=== PATIENT | male | born 1980 | race Caucasian/White ===

== ENCOUNTER 2016-11-09 21:50 | Emergency (ER) | payer MEDICAID, OTHER ==
[~2016-11-09] VITALS: Ht 170.2 cm; Wt 70.8 kg
[~2016-11-09 21:50] MED LIST: BENZ100C18 PO; DOXY100C2 PO
[2016-11-09] MEDS ORDERED: CLINDAMYCIN 900 MG/6ML (CLEOCIN) VIAL IV ONE (22:00)
[2016-11-09 22:11] LABS: MEAN PLATELET VOLUME 10.2 FL (7.4-10.4); RED BLOOD COUNT 4.42 10^6/uL (4.35-5.85); RED CELL DISTRIBUTION WIDTH 12.7 % (10.0-14.5); WHITE BLOOD COUNT 12.2 10^3/uL (4.3-11.0)
[2016-11-09] MEDS ORDERED: NS (IVPB) 50 ML ONE (22:21)
[2016-11-09 22:28] LABS: ALANINE AMINOTRANSFERASE 15 U/L (0-55); ALBUMIN 3.7 GM/DL (3.2-4.5); ALCOHOL < 10 MG/DL (<10); ANION GAP 7 MMOL/L (5-14); ASPARTATE AMINO TRANSFERASE 15 U/L (5-34); BILIRUBIN,DIRECT 0.1 MG/DL (0.0-0.3); BILIRUBIN,INDIRECT 0.3 MG/DL; BILIRUBIN,TOTAL 0.4 MG/DL (0.1-1.0); BLOOD UREA NITROGEN 21 MG/DL (7-18); BUN/CREATININE RATIO 21; CALCIUM 8.6 MG/DL (8.5-10.1); CARBON DIOXIDE 25 MMOL/L (21-32); CHLORIDE 108 MMOL/L (98-107); CREATININE SERUM 1.02 MG/DL (0.60-1.30); GFR ESTIMATED > 60; GLUCOSE 159 MG/DL (70-105); SODIUM 140 MMOL/L (135-145); TOTAL PROTEIN 5.8 GM/DL (6.4-8.2)
[2016-11-09] MEDS ORDERED: ONDANSETRON 4 MG/2 ML (SDV) Z0FRAN IVP ONE (23:00)
[2016-11-09] MEDS ORDERED: fentaNYL INJECTION 100 MCG/2 ML AMP IVP ONE (23:30)
[2016-11-10] MEDS ORDERED: fentaNYL INJECTION 100 MCG/2 ML AMP IVP ONE
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
[2016-11-10] MEDS ORDERED: morphine INJ 10 MG/ML 1ML (SYR OR VIAL) ONE (00:38)
[2016-11-10] MEDS ORDERED: morphine INJ 10 MG/ML 1ML (SYR OR VIAL) IVP ONE (00:45)
[2016-11-10 01:10] VITALS: BP 145/91
--- NOTE | 2016-11-10 06:41 | Diagnostic Imaging Report ---
PROCEDURE: CT head, face, and cervical spine without contrast. TECHNIQUE: Multiple contiguous axial images were obtained through the head, neck, and facial bones without the use of intravenous contrast. Sagittal and coronal reformations through the cervical spine and facial bones were also performed. INDICATION: Trauma. FINDINGS: CT head: There is a subtle area of increased density along the frontal gyri on the right. This is quite small and punctate in appearance. This could represent focal calcification though a small focal contusion cannot be excluded. No other changes of intracranial hemorrhage are noted. Ventricles and cortical gyral pattern are normal. Basal cisterns are clear. Mastoid air cells are well-aerated. IMPRESSION: Small focal punctate area of increased density right frontal gyri. Differential includes small early calcification versus a small focal contusion. CT facial bones: There is a fracture right of midline within the mandible. This is nondisplaced. There is also a fracture of the angle of the mandible on the left which is slightly displaced by approximately 6 mm. The temporomandibular joints are in good alignment. The paranasal sinuses are well-aerated with minimal mucosal thickening. There is deviation of the nasal septum to the left. Nasal bone shows some irregularity though this is likely chronic. There is noted dental caries. IMPRESSION: Fractures of the mandible and just right of midline and at the angle of the mandible on the left which is slightly displaced. Cervical spine: Sagittal and coronal images show good alignment of the vertebral bodies. Body heights and disc spaces are well-maintained. Atlantoaxial joint is normal. Facets are in good alignment. Soft tissues are normal. No fracture. IMPRESSION: Normal cervical spine. These findings are in concordance with the preliminary report. Dictated by: Dictated on workstation # [id number]
== END 2016-11-10 01:10 | disposition short-term general hospital (02) ==
LOC: EDUNIT# 21:50 → ER 21:51
DX: S02.609A Fracture of mandible, unspecified, initial encounter for closed fracture (principal); J44.9 Chronic obstructive pulmonary disease, unspecified; I10 Essential (primary) hypertension; R11.2 Nausea with vomiting, unspecified; F19.10 Other psychoactive substance abuse, uncomplicated; F12.90 Cannabis use, unspecified, uncomplicated; F17.210 Nicotine dependence, cigarettes, uncomplicated; Y04.2XXA Assault by strike against or bumped into by another person, initial encounter
CPT/HCPCS: 36415; 70450; 70486; 72125; 80048; 80076; 80306; 80320; 85027; 96365; 96375; 96376

== ENCOUNTER 2017-02-08 01:16 | Emergency (ER) | payer SELFPAY ==
[~2017-02-08] VITALS: Ht 170.2 cm; Wt 70.8 kg
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
[2017-02-08] MEDS ORDERED: TRAM-42 PO (01:55)
[2017-02-08 02:00] VITALS: BP 133/94
[2017-02-08] MEDS ORDERED: HYDROcodone/APAP 5 MG/325 MG (LORTAB) TAB PO ONE (02:00)
--- NOTE | 2017-02-08 06:59 | Diagnostic Imaging Report ---
INDICATION: Injury FINDINGS: Comminuted fractures of the distal neck of the fourth metacarpal without substantial angulation. There appears to be an old healed deformity of the distal neck and distal shaft of the fifth metacarpal. The phalanges nonacute. No foreign body. IMPRESSION: Acute appearing fracture distal neck fourth metacarpal. Old healed deformities to the fifth. Dictated by: Dictated on workstation # [id number]
== END 2017-02-08 02:00 | disposition home or self-care (01) ==
LOC: EDUNIT# 01:16 → ER 01:19
DX: S62.334A Displaced fracture of neck of fourth metacarpal bone, right hand, initial encounter for closed fracture (principal); F17.210 Nicotine dependence, cigarettes, uncomplicated; J44.9 Chronic obstructive pulmonary disease, unspecified; I10 Essential (primary) hypertension; Y04.8XXA Assault by other bodily force, initial encounter
CPT/HCPCS: 73130; 99283

== ENCOUNTER 2018-04-04 21:16 | Emergency (ER) | payer SELFPAY ==
[~2018-04-04] VITALS: Ht 170.2 cm; Wt 77.1 kg
[~2018-04-04 21:16] MED LIST changes: +TRAM-42 PO
[2018-04-04] MEDS ORDERED: PROP40TA5 PO (21:26)
--- NOTE | 2018-04-04 21:28 | ED Abdominal Pain ---
General Chief Complaint: Abdominal/GI Problems Stated Complaint: LOWER ABD PAIN Source of Information: Patient Exam Limitations: No Limitations History of Present Illness Date Seen by Provider: Apr 04, 2018 Time Seen by Provider: 21:27 Initial Comments To ER with right lower abdominal pain since about 1 AM this morning. No nausea or vomiting. No fevers or chills. He states "it felt like a gas pain at first, then I farted a few times and next thing I know I was shittin' blood." States that he's had 3 bloody stools today. No history of this. No history of inflammatory bowel disease. No fevers or chills. Timing/Duration: 12-24 Hours Severity/Quality: Moderate Location: RLQ Radiation: No Radiation Activities at Onset: None Allergies and Home Medications Allergies Coded Allergies: No Known Drug Allergies (Unverified , 01/28/13) Home Medications Amoxicillin/Potassium Clav 1 Each Tablet, 1 EACH PO BID Prescribed by: HILARY BLUNT on 04/04/180 Propranolol HCl 40 Mg Tablet, 40 MG PO BID, (Reported) Patient Home Medication List Home Medication List Reviewed: Yes Review of Systems Review of Systems Constitutional: see HPI; No chills, No fever EENTM: No Symptoms Reported Respiratory: No Symptoms Reported Cardiovascular: No Symptoms Reported Gastrointestinal: See HPI, Abdominal Pain, Diarrhea; Denies Nausea; Rectal Bleeding Genitourinary: No Symptoms Reported Musculoskeletal: no symptoms reported Skin: no symptoms reported Psychiatric/Neurological: No Symptoms Reported Endocrine: No Symptoms Reported Past Crobdqk-Dkthan-Fbqicz Hx Patient Social History Drug of Choice: marijuana Type Used: Cigarettes 2nd Hand Smoke Exposure: Yes Recent Foreign Travel: No Contact w/Someone Who Travel: No Recent Hopitalizations: No Seasonal Allergies Seasonal Allergies: No Past Medical History Surgeries: No Respiratory: Yes Asthma, Chronic Bronchitis, COPD Cardiac: Yes Hypertension Neurological: No Genitourinary: No Gastrointestinal: No Musculoskeletal: No Endocrine: No HEENT: No Cancer: No Psychosocial: No Integumentary: No Blood Disorders: No Family Medical History No Pertinent Family Hx Physical Exam Vital Signs Vital Signs - First Documented 04/04/18 21:20 Temp 96.4 Pulse 77 Resp 16 B/P (MAP) 129/82 (98) Pulse Ox 98 O2 Delivery Room Air Capillary Refill : Height/Weight/BMI Height: 5'7.00" Weight: 156lbs. oz. 70.166808in; 24.27 BMI Method:Stated General Appearance: WD/WN, no apparent distress HEENT: PERRL/EOMI, normal ENT inspection Respiratory: no respiratory distress, no accessory muscle use Cardiovascular: regular rate, rhythm, no murmur Gastrointestinal: normal bowel sounds, soft, rebound, tenderness (right lower quadrant) Genital/Rectal: other (There is no obvious hemorrhoid or current or dried blood at the rectum) Extremities: normal range of motion, non-tender Neurologic/Psychiatric: alert, normal mood/affect, oriented x 3 Skin: normal color, warm/dry Progress/Results/Core Measures Results/Orders Lab Results Laboratory Tests Test 04/04/18 21:30 04/04/18 21:36 Range/Units White Blood Count 10.5 4.3-11.0 10^3/uL Red Blood Count 4.30 L 4.35-5.85 10^6/uL Hemoglobin 13.5 13.3-17.7 G/DL Hematocrit 39 L 40-54 % Mean Corpuscular Volume 90 80-99 FL Mean Corpuscular Hemoglobin 31 25-34 PG Mean Corpuscular Hemoglobin Concent 35 32-36 G/DL Red Cell Distribution Width 12.9 10.0-14.5 % Platelet Count 314 130-400 10^3/uL Mean Platelet Volume 9.5 7.4-10.4 FL Neutrophils (%) (Auto) 38 L 42-75 % Lymphocytes (%) (Auto) 47 H 12-44 % Monocytes (%) (Auto) 13 H 0-12 % Eosinophils (%) (Auto) 2 0-10 % Basophils (%) (Auto) 0 0-10 % Neutrophils # (Auto) 4.0 1.8-7.8 X 10^3 Lymphocytes # (Auto) 5.0 H 1.0-4.0 X 10^3 Monocytes # (Auto) 1.3 H 0.0-1.0 X 10^3 Eosinophils # (Auto) 0.2 0.0-0.3 10^3/uL Basophils # (Auto) 0.0 0.0-0.1 10^3/uL Sodium Level 143 135-145 MMOL/L Potassium Level 4.0 3.6-5.0 MMOL/L Chloride Level 107 98-107 MMOL/L Carbon Dioxide Level 24 21-32 MMOL/L Anion Gap 12 5-14 MMOL/L Blood Urea Nitrogen 12 7-18 MG/DL Creatinine 1.08 0.60-1.30 MG/DL Estimat Glomerular Filtration Rate > 60 BUN/Creatinine Ratio 11 Glucose Level 98 70-105 MG/DL Calcium Level 9.4 8.5-10.1 MG/DL Corrected Calcium 9.2 8.5-10.1 MG/DL Total Bilirubin 0.3 0.1-1.0 MG/DL Aspartate Amino Transf (AST/SGOT) 22 5-34 U/L Alanine Aminotransferase (ALT/SGPT) 21 0-55 U/L Alkaline Phosphatase 55 40-136 U/L Total Protein 6.6 6.4-8.2 GM/DL Albumin 4.2 3.2-4.5 GM/DL Urine Color YELLOW Urine Clarity CLEAR Urine pH 6 5-9 Urine Specific Ector 1.025 H 1.016-1.022 Urine Protein NEGATIVE NEGATIVE Urine Glucose (UA) NEGATIVE NEGATIVE Urine Ketones NEGATIVE NEGATIVE Urine Nitrite NEGATIVE NEGATIVE Urine Bilirubin NEGATIVE NEGATIVE Urine Urobilinogen NORMAL NORMAL MG/DL Urine Leukocyte Esterase NEGATIVE NEGATIVE Urine RBC (Auto) 1+ H NEGATIVE Urine RBC 0-2 /HPF Urine WBC RARE /HPF Urine Crystals NONE /LPF Urine Bacteria NEGATIVE /HPF Urine Casts NONE /LPF Urine Mucus SMALL H /LPF Urine Culture Indicated NO My Orders Orders - HILARY BLUNT APRN Cbc With Automated Diff (04/04/18 21:25) Comprehensive Metabolic Panel (04/04/18 21:25) Ua Culture If Indicated (04/04/18 21:25) Iv Heplock-Insert (Order) (04/04/18 21:25) Ketorolac Injection (Toradol Injection) (04/04/18 21:30) Ns Iv 1000 Ml (Sodium Chloride 0.9%) (04/04/18 21:30) Ct Abd/Pelv W (Appendicitis) (04/04/18 21:25) Iohexol Injection (Omnipaque 350 Mg/Ml 1 (04/04/18 21:45) Contrast Received (Contrast Received) (04/04/18 21:45) Ns (Ivpb) (Sodium Chloride 0.9%) (04/04/18 21:45) Medications Given in ED Current Medications Medications Dose Ordered Sig/Shelli Route Start Time Stop Time Status Last Admin Dose Admin Iohexol 100 ml ONCE ONCE IV 04/04/18 21:45 04/04/18 21:46 DC 04/04/18 21:46 100 ML Ketorolac Tromethamine 15 mg ONCE ONCE IVP 04/04/18 21:30 04/04/18 21:31 DC 04/04/18 21:33 15 MG Sodium Chloride 250 ml ONCE ONCE IV 04/04/18 21:45 04/04/18 21:46 DC 04/04/18 21:47 80 ML Vital Signs/I&O 04/04/18 21:20 Temp 96.4 Pulse 77 Resp 16 B/P (MAP) 129/82 (98) Pulse Ox 98 O2 Delivery Room Air Diagnostic Imaging Diagonstic Imaging: CT Comments NAME: WILLA VILLEDA [facility] REC#: [id number] PT STATUS: REG ER : 1980 PHYSICIAN: HILARY BLUNT APRN ADMIT DATE: 04/04/18/ER Draft Date of Exam:04/04/18 CT ABD/PELV W (APPENDICITIS) Clinical indication: Patient with lower abdominal pain with nausea, vomiting and diarrhea. Patient has history of left testicle removed due to testicular cancer. Exam: CT scan of the abdomen and pelvis performed with 100 cc of Omnipaque 350 IV contrast. Coronal and sagittal reformatted images were created. Comparison: None. Findings: There is minimal dependent atelectasis involving the posterior aspects of both lung bases. Surgically absent left testicle is seen. Visualized portion of the bones shows no significant abnormality. There is diffuse low-attenuation seen throughout the liver which may be related to diffuse fatty infiltration. The liver is otherwise unremarkable. The spleen, pancreas, gallbladder, and adrenal glands are unremarkable. Both kidneys are unremarkable with no hydronephrosis or mass. There is no significant para-aortic or inguinal lymphadenopathy. There is no intra-abdominal free air or free fluid. The small bowel, colon, and stomach are unremarkable. The appendix is air-filled and unremarkable. There is no significant lymphadenopathy. There are nonspecific subcentimeter mesenteric lymph nodes noted. The bladder is partially fluid-filled with no gross and abnormality. Extra-abdominal and extra-pelvic soft tissue structures are unremarkable. Impression: 1. There are multiple subcentimeter mesenteric lymph nodes which are nonspecific. Mesenteric adenitis may be considered. 2: Otherwise, there is no evidence of acute abdominal or pelvic process. The appendix is normal. 3: Surgically absent left testicle. There is no evidence of lymphadenopathy or developing mass. Dictated on workstation # [id number] Dict: 04/04/182210 Trans: 04/04/182223 [facility] [id number] Interpreted by: VALENTINA CHU MD Electronically signed by: Departure Communication (Admissions) 2030-I spoke with Dr. Morales. Does not recommend antibiotics. I'll have the patient follow up with Dr. Morales in the outpatient setting and return to ER for any worsening symptoms. Impression Primary Impression: Mesenteric adenitis Additional Impression: History of rectal bleeding Disposition: HOME, SELF-CARE Condition: Stable Departure-Patient Inst. Decision time for Depature: 22:27 Referrals: [facility] [place] Primary Care Physician FIDE CASTRO (Family) Primary Care Physician Patient Instructions: Bloody Stools, Adult (DC), Mesenteric Lymphadenitis Add. Discharge Instructions: 1. Clear liquids only for the next 24 hours. Do not eat or drink anything red. Pain medication as directed. Return to ER for any lightheadedness, shortness of breath, severe abdominal pain or other concerns. Call a surgeon of your choosing tomorrow to make an appointment to be seen. Antibiotics as directed. All discharge instructions reviewed with patient and/or family. Voiced understanding. Work/School Note: Work Release Form Date Seen in the Emergency Department: Apr 04, 2018 Return to Work: Apr 06, 2018 HILARY BLUNT APRN Apr 04, 2018 21:28
[2018-04-04] MEDS ORDERED: NS IV 1000 ML 1,000 ML IV SCH (21:30)
[2018-04-04] MEDS ORDERED: KETOROLAC 30 MG/ML VIAL IVP ONE (21:30)
[2018-04-04 21:42] LABS: BASOPHILS % (AUTO) 0 % (0-10); EOSINOPHILS # (AUTO) 0.2 10^3/uL (0.0-0.3); EOSINOPHILS % (AUTO) 2 % (0-10); HEMATOCRIT 39 % (40-54); HEMOGLOBIN 13.5 G/DL (13.3-17.7); LYMPHOCYTES % (AUTO) 47 % (12-44); MEAN CORPUSCULAR HEMOGLOBIN 31 PG (25-34); MEAN CORPUSCULAR HGB CONC 35 G/DL (32-36); MEAN CORPUSCULAR VOLUME 90 FL (80-99); MEAN PLATELET VOLUME 9.5 FL (7.4-10.4); MONOCYTES # (AUTO) 1.3 X 10^3 (0.0-1.0); MONOCYTES % (AUTO) 13 % (0-12); NEUTROPHILS % (AUTO) 38 % (42-75); PLATELET COUNT 314 10^3/uL (130-400); RED CELL DISTRIBUTION WIDTH 12.9 % (10.0-14.5); WHITE BLOOD COUNT 10.5 10^3/uL (4.3-11.0)
[2018-04-04 21:43] LABS: BILIRUBIN,URINE NEGATIVE (NEGATIVE); CLARITY,URINE CLEAR; COLOR,URINE YELLOW; GLUCOSE, URINE (UA) NEGATIVE (NEGATIVE); KETONES,URINE NEGATIVE (NEGATIVE); LEUKOCYTE ESTERASE ,URINE NEGATIVE (NEGATIVE); NITRITE,URINE NEGATIVE (NEGATIVE); PH,URINE 6 (5-9); PROTEIN,URINE NEGATIVE (NEGATIVE); UROBILINOGEN,URINE NORMAL (NORMAL)
[2018-04-04] MEDS ORDERED: IOHEXOL 350 MG/ML 100 ML (OMNIPAQUE 350) VIAL IV ONE (21:45)
[2018-04-04] MEDS ORDERED: RECEIVED CONTRAST (Hold Metformin) IV SCH (21:45)
[2018-04-04] MEDS ORDERED: NS 250 ML (IVPB) BAG IV ONE (21:45)
[2018-04-04 21:54] LABS: BACTERIA,URINE NEGATIVE /HPF; RBC,URINE 0-2 /HPF; WBC,URINE RARE /HPF
[2018-04-04 22:01] LABS: ALANINE AMINOTRANSFERASE 21 U/L (0-55); ALBUMIN 4.2 GM/DL (3.2-4.5); ALKALINE PHOSPHATASE 55 U/L (40-136); BILIRUBIN,TOTAL 0.3 MG/DL (0.1-1.0); BUN/CREATININE RATIO 11; CALCIUM 9.4 MG/DL (8.5-10.1); CARBON DIOXIDE 24 MMOL/L (21-32); CHLORIDE 107 MMOL/L (98-107); CREATININE SERUM 1.08 MG/DL (0.60-1.30); GFR ESTIMATED > 60; GLUCOSE 98 MG/DL (70-105); SODIUM 143 MMOL/L (135-145); TOTAL PROTEIN 6.6 GM/DL (6.4-8.2)
--- NOTE | 2018-04-04 22:24 | Diagnostic Imaging Report ---
Clinical indication: Patient with lower abdominal pain with nausea, vomiting and diarrhea. Patient has history of left testicle removed due to testicular cancer. Exam: CT scan of the abdomen and pelvis performed with 100 cc of Omnipaque 350 IV contrast. Coronal and sagittal reformatted images were created. Comparison: None. Findings: There is minimal dependent atelectasis involving the posterior aspects of both lung bases. Surgically absent left testicle is seen. Visualized portion of the bones shows no significant abnormality. There is diffuse low-attenuation seen throughout the liver which may be related to diffuse fatty infiltration. The liver is otherwise unremarkable. The spleen, pancreas, gallbladder, and adrenal glands are unremarkable. Both kidneys are unremarkable with no hydronephrosis or mass. There is no significant para-aortic or inguinal lymphadenopathy. There is no intra-abdominal free air or free fluid. The small bowel, colon, and stomach are unremarkable. The appendix is air-filled and unremarkable. There is no significant lymphadenopathy. There are nonspecific subcentimeter mesenteric lymph nodes noted. The bladder is partially fluid-filled with no gross and abnormality. Extra-abdominal and extra-pelvic soft tissue structures are unremarkable. Impression: 1. There are multiple subcentimeter mesenteric lymph nodes which are nonspecific. Mesenteric adenitis may be considered. 2: Otherwise, there is no evidence of acute abdominal or pelvic process. The appendix is normal. 3: Surgically absent left testicle. There is no evidence of lymphadenopathy or developing mass. Dictated by: Dictated on workstation # [id number]
[2018-04-04] MEDS ORDERED: AMOX-358 PO (22:30)
[2018-04-04 22:41] VITALS: BP 109/56
[2018-04-04] MEDS ORDERED: RX-HYDROCODONE/APAP 5/325 MG #4 TAB PK PO PRN (22:45)
== END 2018-04-04 22:41 | disposition home or self-care (01) ==
LOC: EDUNIT# 21:16 → ER 21:17
DX: I88.0 Nonspecific mesenteric lymphadenitis (principal); J44.9 Chronic obstructive pulmonary disease, unspecified; I10 Essential (primary) hypertension; F12.10 Cannabis abuse, uncomplicated; Z87.19 Personal history of other diseases of the digestive system; Z77.22 Contact with and (suspected) exposure to environmental tobacco smoke (acute) (chronic)
CPT/HCPCS: 36415; 74177; 80053; 81000; 85025

== ENCOUNTER 2018-04-06 19:21 | Emergency (ER) | payer SELFPAY ==
[~2018-04-06] VITALS: Ht 170.2 cm; Wt 74.4 kg
[~2018-04-06 19:21] MED LIST changes: +AMOX-358 PO; +PROP40TA5 PO
--- NOTE | 2018-04-06 19:34 | ED GI ---
General Stated Complaint: DIARRHEA Source of Information: Patient Exam Limitations: No Limitations History of Present Illness Date Seen by Provider: Apr 06, 2018 Time Seen by Provider: 19:32 Initial Comments To ER per private vehicle from home with reports of "watery diarrhea every 10 minutes". He was seen here 2 days ago and diagnosed with mesenteric adenitis. He was seen by [facility] today in follow-up for this started on clindamycin and prednisone. The states that he is "scheduled for surgery in [address] Morales". She is uncertain why or what procedure will be done. Timing/Duration: 1-2 Days Severity/Quality: Moderate Location: Generalized Abdomen Radiation: No Radiation Activities at Onset: None Associated Symptoms: No Fever/Chills, No Nausea/Vomiting Allergies and Home Medications Allergies Coded Allergies: No Known Drug Allergies (Unverified , 01/28/13) Home Medications Propranolol HCl 40 Mg Tablet, 40 MG PO BID, (Reported) Patient Home Medication List Home Medication List Reviewed: Yes Review of Systems Review of Systems Constitutional: see HPI EENTM: No Symptoms Reported Respiratory: No Symptoms Reported Gastrointestinal: See HPI, Abdominal Pain; Denies Constipated; Diarrhea; Denies Nausea Genitourinary: No Symptoms Reported Musculoskeletal: no symptoms reported Skin: no symptoms reported Psychiatric/Neurological: No Symptoms Reported Endocrine: No Symptoms Reported Past Iyfhbmb-Byaqgd-Lnzulx Hx Patient Social History Drug of Choice: cannibus Type Used: Cigarettes 2nd Hand Smoke Exposure: Yes Recent Foreign Travel: No Contact w/Someone Who Travel: No Recent Hopitalizations: No Immunizations Up To Date Tetanus Booster (TDap): Unknown Seasonal Allergies Seasonal Allergies: No Past Medical History Surgeries: Yes (testicular removal) Orthopedic Respiratory: Yes Asthma, Chronic Bronchitis, COPD Cardiac: Yes Hypertension Neurological: No Genitourinary: No Gastrointestinal: No Musculoskeletal: No Endocrine: No HEENT: No Cancer: No Psychosocial: No Integumentary: No Blood Disorders: No Family Medical History No Pertinent Family Hx Physical Exam Vital Signs Vital Signs - First Documented 04/06/18 19:30 Temp 98.7 Pulse 71 Resp 18 B/P (MAP) 127/82 (97) Pulse Ox 97 O2 Delivery Room Air Capillary Refill : Height/Weight/BMI Height: 5'7.00" Weight: 170lbs. oz. 77.059085uf; 24.27 BMI Method:Stated General Appearance: WD/WN, no apparent distress HEENT: PERRL/EOMI, normal ENT inspection Respiratory: no respiratory distress, no accessory muscle use Cardiovascular: regular rate, rhythm, no murmur Gastrointestinal: normal bowel sounds, non tender, soft Extremities: normal range of motion, non-tender Neurologic/Psychiatric: alert, normal mood/affect, oriented x 3 Skin: normal color, warm/dry Progress/Results/Core Measures Results/Orders Lab Results Laboratory Tests Test 04/06/18 19:35 Range/Units White Blood Count 17.7 H 4.3-11.0 10^3/uL Red Blood Count 4.74 4.35-5.85 10^6/uL Hemoglobin 15.0 13.3-17.7 G/DL Hematocrit 43 40-54 % Mean Corpuscular Volume 91 80-99 FL Mean Corpuscular Hemoglobin 32 25-34 PG Mean Corpuscular Hemoglobin Concent 35 32-36 G/DL Red Cell Distribution Width 13.2 10.0-14.5 % Platelet Count 302 130-400 10^3/uL Mean Platelet Volume 9.8 7.4-10.4 FL Neutrophils (%) (Auto) 89 H 42-75 % Lymphocytes (%) (Auto) 7 L 12-44 % Monocytes (%) (Auto) 3 0-12 % Eosinophils (%) (Auto) 1 0-10 % Basophils (%) (Auto) 0 0-10 % Neutrophils # (Auto) 15.7 H 1.8-7.8 X 10^3 Lymphocytes # (Auto) 1.2 1.0-4.0 X 10^3 Monocytes # (Auto) 0.6 0.0-1.0 X 10^3 Eosinophils # (Auto) 0.2 0.0-0.3 10^3/uL Basophils # (Auto) 0.0 0.0-0.1 10^3/uL Neutrophils % (Manual) 77 % Lymphocytes % (Manual) 22 % Monocytes % (Manual) 1 % Eosinophils % (Manual) 0 % Basophils % (Manual) 0 % Band Neutrophils 0 % Blood Morphology Comment NORMAL Sodium Level 141 135-145 MMOL/L Potassium Level 4.2 3.6-5.0 MMOL/L Chloride Level 107 98-107 MMOL/L Carbon Dioxide Level 23 21-32 MMOL/L Anion Gap 11 5-14 MMOL/L Blood Urea Nitrogen 9 7-18 MG/DL Creatinine 1.04 0.60-1.30 MG/DL Estimat Glomerular Filtration Rate > 60 BUN/Creatinine Ratio 9 Glucose Level 128 H 70-105 MG/DL Calcium Level 9.3 8.5-10.1 MG/DL Corrected Calcium 8.5-10.1 MG/DL Total Bilirubin 0.4 0.1-1.0 MG/DL Aspartate Amino Transf (AST/SGOT) 26 5-34 U/L Alanine Aminotransferase (ALT/SGPT) 28 0-55 U/L Alkaline Phosphatase 57 40-136 U/L Total Protein 7.3 6.4-8.2 GM/DL Albumin 4.6 H 3.2-4.5 GM/DL My Orders Orders - HILARY BLUNT APRN Cbc With Automated Diff (04/06/18 19:24) Comprehensive Metabolic Panel (04/06/18 19:24) Iv Heplock-Insert (Order) (04/06/18 19:24) Ns Iv 1000 Ml (Sodium Chloride 0.9%) (04/06/18 19:30) Hyoscyamine Sl Tablet (Levsin Sl Tablet) (04/06/18 19:30) Manual Differential (04/06/18 19:35) Stool Culture (04/06/18 20:20) C Difficile Ag + Toxin A/B. (04/06/18 20:20) Rx-Hyoscyamine Tab (Rx-Levsin Sl) (04/06/18 20:20) Ketorolac Injection (Toradol Injection) (04/06/18 20:30) Medications Given in ED Current Medications Medications Dose Ordered Sig/Shelli Route Start Time Stop Time Status Last Admin Dose Admin Hyoscyamine Sulfate 0.25 mg ONCE ONCE PO 04/06/18 19:30 04/06/18 19:31 DC 04/06/18 19:44 0.25 MG Vital Signs/I&O 04/06/18 19:30 Temp 98.7 Pulse 71 Resp 18 B/P (MAP) 127/82 (97) Pulse Ox 97 O2 Delivery Room Air Departure Communication (Admissions) I spoke with Dr. Morales. He does not have any clinic notes on this patient and does not have anything surgically scheduled other than possibly an office visit. He would recommend discontinuing the clindamycin and prednisone if they are in fact treatment for mesenteric adenitis. He would recommend NSAIDs and follow up with him. 2020- he did start the prednisone earlier today which would account for the leukocytosis. I'll have him stop that as well as the clindamycin. Prescribed Levsin as this still likely represents a viral gastroenteritis. I did order a C. difficile stool sample and stool culture. He did get a stool sample in the emergency room and there is no obvious blood in it. Impression Primary Impression: Gastroenteritis Additional Impression: Mesenteric adenitis Disposition: HOME, SELF-CARE Condition: Stable Departure-Patient Inst. Decision time for Depature: 20:22 Referrals: [facility] (PCP) Primary Care Physician FIDE CASTRO (Family) Primary Care Physician SHELIA MORALES DO Patient Instructions: [id number], Mesenteric Lymphadenitis Add. Discharge Instructions: 1. Drink plenty of fluids to stay hydrated 2. Medication as directed 3. You may stop the clindamycin and prednisone. Return to ER for any high fevers or other concerns. You may also call Dr. Morales yourself tomorrow morning to make the appointment. Copy Copies To 1: SHELIA MORALES DO HILARY BLUNT APRN Apr 06, 2018 19:33
--- OUTSIDE RECORDS SUMMARY | 2018-04-06 19:34 | XMS REPORT ---
Author Author FIDE CASTRO Organization [facility] Address [address] [place] [address] Care Team Providers Care Beater Boss Name Role Phone FIDE CASTRO Unavailable PROBLEMS Type Condition ICD9-CM Code [id number] Code Onset Dates Condition Status SNOMED Code Problem Paresthesia of both hands R20.2 Active 003311010 Problem Hypogonadism in male E29.1 Active 59588212 ALLERGIES No Information ENCOUNTERS Encounter Location Date Diagnosis [place] [id number] [place] [phone] Dec, [place] [id number] [place] [address] 288[address]463 Oct, Closed displaced fracture of base of third metacarpal bone of right hand with routine healing, subsequent encounter S62.312D [place] [id number] [place] [address] Jun, Paresthesia of both hands R20.2 [place] [id number] [place] [address]73[address] 8637 Jan, Closed displaced fracture of base of third metacarpal bone of right hand with routine healing, subsequent encounter S62.312D [place] [id number] [place] [address] 02127[address] 3295 Jan, [place] [id number] [place] [address]- 3662 Oct, [place] [id number] [place] [address] 82319- 7296 Feb, Visit for suture removal Z48.02 and Sebaceous cyst L72.3 [place] [id number] [place] [address] 14274- 1508 Feb, Sebaceous cyst L72.3 ; Pain in left knee M25.562 and Hypogonadism in male E29.1 [facility] [address], [place] [address] Jan, Sebaceous cyst L72.3 [facility] [address], [place] [address] Jul, [facility] [id number] [place] [phone] Jul, [facility] [address], [place] [address] Apr, [place] [address], [place] [address] Apr, IMMUNIZATIONS No Known Immunizations SOCIAL HISTORY Never Assessed REASON FOR VISIT Refill request PLAN OF CARE VITAL SIGNS MEDICATIONS Medication Instructions Dosage Frequency Start Date End Date Duration Status Propranolol HCl 40 mg Orally Twice a day, voucher 1st fill 1 tablet 30 Active RESULTS No Results PROCEDURES No Known procedures INSTRUCTIONS MEDICATIONS ADMINISTERED No Known Medications MEDICAL (GENERAL) HISTORY Type Description Date Medical History hypertension Surgical History left knee scope Surgical History right hand broken 2016 Surgical History testicle had a cyst 2016 Surgical History plates in the jaw 10/2016
--- OUTSIDE RECORDS SUMMARY | 2018-04-06 19:34 | XMS REPORT ---
Author Author FIDE CASTRO Organization [facility] Address [address] [place] [address] Care Team Providers Care Jig Box Operator Name Role Phone FIDE CASTRO Unavailable PROBLEMS Type Condition ICD9-CM Code [id number] Code Onset Dates Condition Status SNOMED Code Problem Paresthesia of both hands R20.2 Active 611016421 Problem Hypogonadism in male E29.1 Active [id number] ALLERGIES No Known Allergies ENCOUNTERS Encounter Location Date Diagnosis [place] [id number] [place] [address] Jun, Paresthesia of both hands R20.2 [facility] [id number] [place] [address] 88178- [address] Jan, Closed displaced fracture of base of third metacarpal bone of right hand with routine healing, subsequent encounter S62.312D [facility] [id number] [place] [address]- 6157 Jan, [place] [id number] [place] [address] 00746- 0064 Oct, [facility] [id number] [place] [address] 16842- 4[address] Feb, Visit for suture removal Z48.02 and Sebaceous cyst L72.3 [facility] [id number] [place] [address] 86700- 3054 Feb, Sebaceous cyst L72.3 ; Pain in left knee M25.562 and Hypogonadism in male E29.1 [facility] [id number] [place] [address] 47345- [address]479 Jan, Sebaceous cyst L72.3 [facility] [id number] [place] [address]100- [address] Jul, [facility] [address] [facility] [id number] [place] [address] Jul, [facility] [address] [facility] [id number] [address] Apr, [facility] [address] [facility] [id number] [place] [address] Apr, IMMUNIZATIONS No Known Immunizations SOCIAL HISTORY Never Assessed REASON FOR VISIT General physical, PT broke his right hand a few months ago and is now always swollen and PT needs his BP checked-Srinivasan TAYLOR PLAN OF CARE VITAL SIGNS Height 67 in 2017-06-24 Weight 142.8 lbs 2017-06-24 Temperature 97.9 degrees Fahrenheit 2017-06-24 Heart Rate 84 bpm 2017-06-24 Respiratory Rate 18 2017-06-24 BMI 22.36 kg/m2 2017-06-24 Blood pressure systolic 128 mmHg 2017-06-24 Blood pressure diastolic 70 mmHg 2017-06-24 MEDICATIONS Medication Instructions Dosage Frequency Start Date End Date Duration Status Propranolol HCl 40 mg Orally Twice a day, voucher 1st fill 1 tablet 30 Active Neurontin 300 MG Orally Once a day 1 capsule before bedtime 24h Jun, 30 day(s) Active RESULTS No Results PROCEDURES No Known procedures INSTRUCTIONS MEDICATIONS ADMINISTERED No Known Medications MEDICAL (GENERAL) HISTORY Type Description Date Medical History hypertension Surgical History left knee scope Surgical History right hand broken 2016 Surgical History testicle had a cyst 2016 Surgical History plates in the jaw 10/2016
--- OUTSIDE RECORDS SUMMARY | 2018-04-06 19:34 | XMS REPORT ---
Author FIDE Lopez Organization [employer] Address Unknown Phone Unavailable Care Team Providers Care Kitchen Help Handyman Name Role Phone FIDE CASTRO CP Unavailable Allergies, Adverse Reactions, Alerts Substance Reaction Event Type N.K.D.A. Info Not Available Non Drug Allergy Problems Problem Type Condition Code Onset Dates Condition Status Problem Acute upper respiratory infections of unspecified site 465.9 Active Problem Influenza with other respiratory manifestations 487.1 Active Problem Hypogonadism in male E29.1 Active Assessment Hypogonadism in male E29.1 Active Assessment Sebaceous cyst L72.3 Active Assessment Pain in left knee M25.562 Active Medications No Known Medications Procedures Procedure Coding System Code Date DRAIN/INJECT, JOINT/BURSA CPT-4 25687 Feb 24, 2016 Office Visit, Est Pt., Level 2 CPT-4 54189 Feb 24, 2016 EXC TR-EXT B9 BARTOLO 1.1-2 CM CPT-4 16808 Feb 24, 2016 Vital Signs Date/Time: Feb 24, 2016 Cardiac Monitoring Heart Rate 100 bpm Weight 154.9 lbs Height 67 in BMI 24.26 Index Blood Pressure Diastolic 68 mmHg Blood Pressure Systolic 130 mmHg Results No Known Results Summary Purpose [employer] Submission
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
--- OUTSIDE RECORDS SUMMARY | 2018-04-06 19:34 | XMS REPORT ---
Author Author FIDE CASTRO Organization [facility] Address [address] [place] [address] Care Team Providers Care Life Consultant Name Role Phone FIDE CASTRO Unavailable PROBLEMS Type Condition ICD9-CM Code [id number] Code Onset Dates Condition Status SNOMED Code Problem Paresthesia of both hands R20.2 Active 592756213 Problem Hypogonadism in male E29.1 Active [id number] ALLERGIES No Information ENCOUNTERS Encounter Location Date Diagnosis [facility] [place] [id number] [place] [address]95- [address] Jun, Paresthesia of both hands R20.2 [facility] [place] [id number] [place] [address] Jan, Closed displaced fracture of base of third metacarpal bone of right hand with routine healing, subsequent encounter S62.312D [facility] [place] [id number] [place] [address] 73459- [address] Jan, [facility] [place] [id number] [place] [address] 91475- 2162 Oct, [facility] [place] [id number] [place] [address] 86689- [address]12 Feb, Visit for suture removal Z48.02 and Sebaceous cyst L72.3 [facility] [place] [address] [place] [address] 96083- 1495 Feb, Sebaceous cyst L72.3 ; Pain in left knee M25.562 and Hypogonadism in male E29.1 [facility] [place] [address] [place] [address] 96778- 9785 Jan, Sebaceous cyst L72.3 [facility] [place] [id number] [place] [address] 43436- [address]46 Jul, [facility] [place] [address] [facility] [id number] [address] Jul, [facility] [place] [address] [facility] [address] [facility] [id number], [place] [address] Apr, [facility] [place] [address] [facility] [address] [facility] [id number] [address] Apr, IMMUNIZATIONS No Known Immunizations SOCIAL HISTORY Never Assessed REASON FOR VISIT PLAN OF CARE VITAL SIGNS MEDICATIONS Medication Instructions Dosage Frequency Start Date End Date Duration Status Propranolol HCl 40 mg Orally Twice a day 1 tablet 12h Oct, 30 day(s) Active RESULTS No Results PROCEDURES No Known procedures INSTRUCTIONS MEDICATIONS ADMINISTERED No Known Medications MEDICAL (GENERAL) HISTORY Type Description Date Medical History hypertension Surgical History left knee scope Surgical History right hand broken 2016 Surgical History testicle had a cyst 2016 Surgical History plates in the jaw 10/2016
--- OUTSIDE RECORDS SUMMARY | 2018-04-06 19:34 | XMS REPORT ---
Author FIDE Lopez Organization [employer] Address Unknown Phone Unavailable Care Team Providers Care Rn Birthing Name Role Phone FIDE CASTRO CP Unavailable Allergies, Adverse Reactions, Alerts Substance Reaction Event Type N.K.D.A. Info Not Available Non Drug Allergy Problems Problem Type Condition Code Onset Dates Condition Status Problem Influenza with other respiratory manifestations 487.1 Active Assessment Sebaceous cyst L72.3 Active Problem Acute upper respiratory infections of unspecified site 465.9 Active Medications No Known Medications Procedures Procedure Coding System Code Date Office Visit, Est Pt., Level 3 CPT-4 05805 Feb 13, 2016 Vital Signs Date/Time: Feb 13, 2016 Cardiac Monitoring Heart Rate 104 bpm Weight 151.5 lbs Height 67 in BMI 23.73 Index Blood Pressure Diastolic 86 mmHg Blood Pressure Systolic 134 mmHg Results No Known Results Summary Purpose [employer] Submission
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
--- OUTSIDE RECORDS SUMMARY | 2018-04-06 19:35 | XMS REPORT | Continuity of Care Document ---
Author Author [facility] Organization [facility] Address Unknown Phone Unavailable Care Team Providers Care Senior Quality Engineer Name Role Phone NO, LOCAL PHYSICIAN PP Unavailable Insurance Providers Payer Name Policy Number Subscriber Name Relationship Self Pay Chuy Camacho 01 Self / Same As Patient Advance Directives Directive Response Recorded Date Advance Directives N 01/28/13 6:48pm Organ Donor Y 01/28/13 6:48pm Problems No Known Problems or Medical conditions. Social History History Response Recorded Date/Time Alcohol Use Regular Use 01/29/13 6:19am Recreational Drug Use Y THC 01/29/13 6: 19am Allergies, Adverse Reactions, Alerts Allergen Type Severity Reaction Last Updated No Known Drug Allergies 01/28/13 Medications Medication Dose Units Route Sig Qty Days Benzonatate (Tessalon Perle) 1 - 2 Each PO Q 4 - 6 HR PRN 30 Doxycycline Hyclate 1 Each PO BID 20 Response Recorded Date/Time Status not known Unknown Results Test Date Result Interp. Ref. Range Acetaminophen Screen February 16, 2009 3:30am NEGATIVE - Alanine Aminotransferase (ALT/SGPT) January 28, 2013 7:00pm 34 U/L N 30-65 Albumin January 28, 2013 7:00pm 4.1 G/ DL N 3.4-5.0 Alkaline Phosphatase January 28, 2013 7:00pm 74 U/L N 50-136 Stu Test January 28, 2013 7:04pm POSITIVE - Arterial Blood Base Excess January 28, 2013 7:04pm -0.1 MMOL/L N -2.5-2.5 Arterial Blood HCO3 January 28, 2013 7:04pm 26 MMOL/L N 23-27 Arterial Blood Oxygen Saturation January 28, 2013 7:04pm 72 % L 94-100 Arterial Blood Partial Pressure CO2 January 28, 2013 7:04pm 46 MMHG H 35-45 Arterial Blood Partial Pressure O2 January 28, 2013 7:04pm 38 MMHG L 79-93 Arterial Blood Total CO2 January 28, 2013 7:04pm 27.3 MMOL/L N 21.0-31.0 Arterial Blood pH January 28, 2013 7:04pm 7.37 N 7.37-7.43 Aspartate Amino Transf (AST/SGOT) January 28, 2013 7:00pm 26 U/L N 15-37 BUN/Creatinine Ratio January 28, 2013 7:00pm 6 - Basophils # (Auto) January 28, 2013 7:00pm 0.0 10^3/uL N 0.0-0.1 Basophils (%) (Auto) January 28, 2013 7:00pm 0 % N 0-10 Blood Gas Inspired Oxygen January 28, 2013 7:04pm 15% - Blood Gas Patient Temperature January 28, 2013 7:04pm 97.5 - Blood Gas Puncture Site January 28, 2013 7:04pm R RADIAL - Blood Gas Ventilator Setting January 28, 2013 7:04pm NO - Blood Urea Nitrogen January 28, 2013 7:00pm 6 MG/DL L 7-18 Calcium Level January 28, 2013 7:00pm 8.6 MG/DL N 8.5-10.1 Carbon Dioxide Level January 28, 2013 7:00pm 27 MMOL/L N 21-32 Chloride Level January 28, 2013 7:00pm 99 MMOL/L L 101-110 Creatinine January 28, 2013 7:00pm 1.0 MG/DL N 0.6-1.3 Eosinophils # (Auto) January 28, 2013 7:00pm 0.1 10^3/uL N 0.0-0.3 Eosinophils (%) (Auto) January 28, 2013 7:00pm 1 % N 0-10 Glucose Level January 28, 2013 7:00pm 132 MG/DL H 74-106 Hematocrit January 28, 2013 7:00pm 44 % N 40-54 Hemoglobin January 28, 2013 7:00pm 15.8 G/DL N 13.3-17.7 Lymphocytes # (Auto) January 28, 2013 7:00pm 3.6 X 10^3 N 1.0-4.0 Lymphocytes (%) (Auto) January 28, 2013 7:00pm 37 % N 12-44 Mean Corpuscular Hemoglobin January 28, 2013 7:00pm 32 PG N 25-34 Mean Corpuscular Hemoglobin Concent January 28, 2013 7:00pm 36 G/DL N 32-36 Mean Corpuscular Volume January 28, 2013 7:00pm 88 FL N 80-99 Mean Platelet Volume January 28, 2013 7:00pm 9.7 FL N 7.4-10.4 Monocytes # (Auto) January 28, 2013 7:00pm 0.9 X 10^3 N 0.0-1.0 Monocytes (%) (Auto) January 28, 2013 7:00pm 10 % N 0-12 Neutrophils # (Auto) January 28, 2013 7:00pm 5.1 X 10^3 N 1.8-7.8 Neutrophils (%) (Auto) January 28, 2013 7:00pm 53 % N 42-75 Platelet Count January 28, 2013 7:00pm 311 10^3/uL N 130-400 Potassium Level January 28, 2013 7:00pm 3.4 MMOL/L L 3.6-5.0 Red Blood Count January 28, 2013 7:00pm 5.02 10^6/uL N 4.35-5.85 Red Cell Distribution Width January 28, 2013 7:00pm 12.4 % N 10.0-14.5 Sodium Level January 28, 2013 7:00pm 136 MMOL/L N 135-145 Total Bilirubin January 28, 2013 7:00pm 0.6 MG/DL N 0.0-1.0 Total Protein January 28, 2013 7:00pm 7.2 G/DL N 6.4-8.2 Ur Tricyclic Antidepressants Screen January 28, 2013 7:40pm NEGATIVE - Urine Amphetamines Screen January 28, 2013 7:40pm NEGATIVE - Urine Bacteria January 28, 2013 7:40pm NEGATIVE /HPF - Urine Barbiturates Screen January 28, 2013 7:40pm NEGATIVE - Urine Benzodiazepines Screen January 28, 2013 7:40pm NEGATIVE - Urine Bilirubin January 28, 2013 7:40pm NEGATIVE - Urine Casts January 28, 2013 7:40pm NONE /LPF - Urine Clarity January 28, 2013 7:40pm CLEAR - Urine Cocaine Screen January 28, 2013 7:40pm NEGATIVE - Urine Color January 28, 2013 7:40pm YELLOW - Urine Crystals January 28, 2013 7:40pm NONE /LPF - Urine Culture Indicated January 28, 2013 7:40pm NO - Urine Glucose (UA) January 28, 2013 7:40pm NEGATIVE - Urine Ketones January 28, 2013 7:40pm NEGATIVE - Urine Leukocyte Esterase January 28, 2013 7:40pm NEGATIVE - Urine Methamphetamines Screen January 28, 2013 7:40pm POSITIVE H - Urine Mucus January 28, 2013 7:40pm NEGATIVE /LPF - Urine Nitrite January 28, 2013 7:40pm NEGATIVE - Urine Opiates Screen January 28, 2013 7:40pm NEGATIVE - Urine Phencyclidine Screen January 28, 2013 7:40pm NEGATIVE - Urine Propoxyphene Screen January 28, 2013 7:40pm NEGATIVE - Urine Protein January 28, 2013 7:40pm NEGATIVE - Urine RBC January 28, 2013 7:40pm NONE / HPF - Urine Specific [place] January 28, 2013 7:40pm 1.010 L - Urine Squamous Epithelial Cells January 28, 2013 7:40pm RARE /HPF - Urine Urobilinogen January 28, 2013 7:40pm NORMAL MG/DL - Urine WBC January 28, 2013 7:40pm NONE / HPF - Urine pH January 28, 2013 7:40pm 6 - White Blood Count January 28, 2013 7:00pm 9.6 10^3/uL N 4.3-11.0 Pro-B-Type Natriuretic Peptide January 28, 2013 7:00pm 40.5 PG/ML N -125 Serum Alcohol January 28, 2013 7:00pm 110 MG/DL H -3 Estimat Glomerular Filtration Rate January 28, 2013 7:00pm > 60 - Urine Oxycodone Screen January 28, 2013 7:40pm NEGATIVE - Urine Methadone Screen January 28, 2013 7:40pm NEGATIVE - Urine Cannabinoids Screen January 28, 2013 7:40pm NEGATIVE - Urine Buprenorphine January 28, 2013 7:40pm NEGATIVE - Urine RBC (Auto) January 28, 2013 7:40pm NEGATIVE - Encounters Encounter Location Date/Time Departed Emergency Room [facility] 6:44pm
[2018-04-06] MEDS: NS IV 1000 ML 1,000 ML IV SCH (19:44)
[2018-04-06] MEDS: HYOSCYAMINE 0.125 MG (LEVSIN) TAB PO ONE (19:44)
[2018-04-06 19:45] LABS: BASOPHILS % (AUTO) 0 % (0-10); EOSINOPHILS # (AUTO) 0.2 10^3/uL (0.0-0.3); EOSINOPHILS % (AUTO) 1 % (0-10); HEMATOCRIT 43 % (40-54); LYMPHOCYTES # (AUTO) 1.2 X 10^3 (1.0-4.0); LYMPHOCYTES % (AUTO) 7 % (12-44); MEAN CORPUSCULAR HEMOGLOBIN 32 PG (25-34); MEAN CORPUSCULAR HGB CONC 35 G/DL (32-36); MEAN CORPUSCULAR VOLUME 91 FL (80-99); MEAN PLATELET VOLUME 9.8 FL (7.4-10.4); MONOCYTES # (AUTO) 0.6 X 10^3 (0.0-1.0); MONOCYTES % (AUTO) 3 % (0-12); NEUTROPHILS # (AUTO) 15.7 X 10^3 (1.8-7.8); NEUTROPHILS % (AUTO) 89 % (42-75); PLATELET COUNT 302 10^3/uL (130-400); RED BLOOD COUNT 4.74 10^6/uL (4.35-5.85); RED CELL DISTRIBUTION WIDTH 13.2 % (10.0-14.5); WHITE BLOOD COUNT 17.7 10^3/uL (4.3-11.0)
[2018-04-06 19:57] LABS: BAND NEUTROPHILS 0 %; BASOPHILS % (MANUAL) 0 %; EOSINOPHILS % (MANUAL) 0 %; LYMPHOCYTES % (MANUAL) 22 %; MONOCYTES % (MANUAL) 1 %; NEUTROPHILS % (MANUAL) 77 %; RBC MORPH NORMAL
[2018-04-06 20:07] LABS: ALANINE AMINOTRANSFERASE 28 U/L (0-55); ALBUMIN 4.6 GM/DL (3.2-4.5); ALKALINE PHOSPHATASE 57 U/L (40-136); BILIRUBIN,TOTAL 0.4 MG/DL (0.1-1.0); BUN/CREATININE RATIO 9; CALCIUM 9.3 MG/DL (8.5-10.1); CARBON DIOXIDE 23 MMOL/L (21-32); CREATININE SERUM 1.04 MG/DL (0.60-1.30); GFR ESTIMATED > 60; GLUCOSE 128 MG/DL (70-105); TOTAL PROTEIN 7.3 GM/DL (6.4-8.2)
[2018-04-06 20:12] LABS: CHLORIDE 107 MMOL/L (98-107); POTASSIUM 4.2 MMOL/L (3.6-5.0); SODIUM 141 MMOL/L (135-145)
[2018-04-06] MEDS: KETOROLAC 30 MG/ML VIAL IVP ONE (20:29)
[2018-04-06] MEDS: HYDROcodone/APAP 5 MG/325 MG (LORTAB) TAB PO ONE (21:06)
[2018-04-06] MEDS: RX-HYOSCYAMINE 0.125 MG SL (LEVSIN) PPK#6 SL STA (21:07)
[2018-04-06 21:10] VITALS: BP 121/72
== END 2018-04-06 21:10 | disposition home or self-care (01) ==
LOC: EDUNIT# 19:21 → ER 19:22
DX: K52.9 Noninfective gastroenteritis and colitis, unspecified (principal); I88.0 Nonspecific mesenteric lymphadenitis; J44.9 Chronic obstructive pulmonary disease, unspecified; I10 Essential (primary) hypertension; Z77.22 Contact with and (suspected) exposure to environmental tobacco smoke (acute) (chronic)
CPT/HCPCS: 36415; 80053; 85007; 85027; 87015; 87045; 87046; 87324; 87449; 87899; 96361; 96374

== ENCOUNTER 2018-06-27 18:21 | Emergency (ER) | payer SELFPAY ==
[~2018-06-27] VITALS: Ht 170.2 cm; Wt 81.6 kg
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
--- NOTE | 2018-06-27 18:34 | ED Lower Extremity ---
General Chief Complaint: Lower Extremity Stated Complaint: FEET SWELLING,UNKNOWN CAUSE,PRESSURE Nursing Triage Note: pt arrived POV with c/o bilateral foot swelling and pain. This started this morning Nursing Sepsis Screen: No Definite Risk Source: patient Exam Limitations: no limitations History of Present Illness Date Seen by Provider: Jun 27, 2018 Time Seen by Provider: 18:34 Initial Comments 37-year-old male who presents to the emergency room with complaints of bilateral foot swelling and pain that started this morning when he woke up. He denies having had this happen before. He denies any history of heart failure. Allergies and Home Medications Allergies Coded Allergies: No Known Drug Allergies (Unverified , 01/28/13) Home Medications Propranolol HCl 40 Mg Tablet, 40 MG PO BID, (Reported) Past Qdttjao-Gsqrjn-Dzscoc Hx Patient Social History Drug of Choice: cannibus Type Used: Cigarettes 2nd Hand Smoke Exposure: Yes Recent Foreign Travel: No Contact w/Someone Who Travel: No Recent Infectious Disease Expo: No Recent Hopitalizations: No Immunizations Up To Date Tetanus Booster (TDap): Unknown Seasonal Allergies Seasonal Allergies: No Past Medical History Surgeries: Yes (testicular removal) Orthopedic Respiratory: Yes Asthma, Chronic Bronchitis, COPD Cardiac: Yes Hypertension Neurological: No Genitourinary: No Gastrointestinal: No Musculoskeletal: No Endocrine: No HEENT: No Cancer: No Psychosocial: No Integumentary: No Blood Disorders: No Family Medical History No Pertinent Family Hx Physical Exam Vital Signs Vital Signs - First Documented 06/27/18 18:26 Temp 97.4 Resp 20 B/P (MAP) 126/65 (85) Pulse Ox 98 O2 Delivery Room Air Capillary Refill : Less Than 3 Seconds Height, Weight, BMI Height: 5'7.00" Weight: 180lbs. oz. 81.606191nr; 24.27 BMI Method:Stated Progress/Results/Core Measures Results/Orders Lab Results Laboratory Tests Test 06/27/18 18:45 Range/Units White Blood Count 8.7 4.3-11.0 10^3/uL Red Blood Count 4.59 4.35-5.85 10^6/uL Hemoglobin 14.5 13.3-17.7 G/DL Hematocrit 42 40-54 % Mean Corpuscular Volume 90 80-99 FL Mean Corpuscular Hemoglobin 32 25-34 PG Mean Corpuscular Hemoglobin Concent 35 32-36 G/DL Red Cell Distribution Width 12.7 10.0-14.5 % Platelet Count 313 130-400 10^3/uL Mean Platelet Volume 9.3 7.4-10.4 FL Neutrophils (%) (Auto) 40 L 42-75 % Lymphocytes (%) (Auto) 46 H 12-44 % Monocytes (%) (Auto) 11 0-12 % Eosinophils (%) (Auto) 3 0-10 % Basophils (%) (Auto) 0 0-10 % Neutrophils # (Auto) 3.5 1.8-7.8 X 10^3 Lymphocytes # (Auto) 4.0 1.0-4.0 X 10^3 Monocytes # (Auto) 1.0 0.0-1.0 X 10^3 Eosinophils # (Auto) 0.3 0.0-0.3 10^3/uL Basophils # (Auto) 0.0 0.0-0.1 10^3/uL Erythrocyte Sedimentation Rate 4 0-15 MM/HR Sodium Level 140 135-145 MMOL/L Potassium Level 4.2 3.6-5.0 MMOL/L Chloride Level 104 98-107 MMOL/L Carbon Dioxide Level 27 21-32 MMOL/L Anion Gap 9 5-14 MMOL/L Blood Urea Nitrogen 10 7-18 MG/DL Creatinine 1.33 H 0.60-1.30 MG/DL Estimat Glomerular Filtration Rate > 60 BUN/Creatinine Ratio 8 Glucose Level 129 H 70-105 MG/DL Uric Acid 4.6 2.6-7.2 MG/DL Calcium Level 8.9 8.5-10.1 MG/DL Corrected Calcium 8.8 8.5-10.1 MG/DL Total Bilirubin 0.4 0.1-1.0 MG/DL Aspartate Amino Transf (AST/SGOT) 20 5-34 U/L Alanine Aminotransferase (ALT/SGPT) 18 0-55 U/L Alkaline Phosphatase 63 40-136 U/L C-Reactive Protein High Sensitivity 0.51 H 0.00-0.50 MG/DL B-Type Natriuretic Peptide < 10.0 <100.0 PG/ML Total Protein 6.6 6.4-8.2 GM/DL Albumin 4.1 3.2-4.5 GM/DL My Orders Orders - RAFAT GALVEZ Comprehensive Metabolic Panel (06/27/18 18:32) Saline Lock/Iv-Start (3/12/19 18:32) Cbc With Automated Diff (06/27/18 18:32) Hs C Reactive Protein (06/27/18 18:32) Erythrocyte Sedimentation Rate (06/27/18 18:32) Uric Acid (06/27/18 18:32) BNP (06/27/18 18:57) Ketorolac Injection (Toradol Injection) (06/27/18 20:30) Medications Given in ED Current Medications Medications Dose Ordered Sig/Shelli Route Start Time Stop Time Status Last Admin Dose Admin Ketorolac Tromethamine 15 mg ONCE ONCE IVP 06/27/18 20:30 06/27/18 20:31 DC 06/27/18 20:30 15 MG Vital Signs/I&O 06/27/18 18:26 Temp 97.4 Resp 20 B/P (MAP) 126/65 (85) Pulse Ox 98 O2 Delivery Room Air Blood Pressure Mean: 85 Departure Impression Primary Impression: Dependent edema Disposition: 01 HOME, SELF-CARE Condition: Stable/Unchanged Departure-Patient Inst. Decision time for Depature: 20:41 Referrals: [facility] (PCP) Primary Care Physician FIDE CASTRO (Family) Primary Care Physician Patient Instructions: Dependent Edema (DC) Add. Discharge Instructions: Elevate your legs as much as possible. Follow-up with your primary care provider within 1 week for recheck. Return back to the emergency room for worsening symptoms, shortness of breath, or any other concerns as needed. All discharge instructions reviewed with patient and/or family. Voiced understanding. RAFAT GALVEZ Jun 27, 2018 18:34
[2018-06-27 18:57] LABS: BASOPHILS % (AUTO) 0 % (0-10); EOSINOPHILS # (AUTO) 0.3 10^3/uL (0.0-0.3); EOSINOPHILS % (AUTO) 3 % (0-10); HEMATOCRIT 42 % (40-54); HEMOGLOBIN 14.5 G/DL (13.3-17.7); LYMPHOCYTES % (AUTO) 46 % (12-44); MEAN CORPUSCULAR HEMOGLOBIN 32 PG (25-34); MEAN CORPUSCULAR HGB CONC 35 G/DL (32-36); MEAN CORPUSCULAR VOLUME 90 FL (80-99); MEAN PLATELET VOLUME 9.3 FL (7.4-10.4); MONOCYTES % (AUTO) 11 % (0-12); NEUTROPHILS # (AUTO) 3.5 X 10^3 (1.8-7.8); NEUTROPHILS % (AUTO) 40 % (42-75); PLATELET COUNT 313 10^3/uL (130-400); RED CELL DISTRIBUTION WIDTH 12.7 % (10.0-14.5); WHITE BLOOD COUNT 8.7 10^3/uL (4.3-11.0)
[2018-06-27 19:17] LABS: ALANINE AMINOTRANSFERASE 18 U/L (0-55); ALBUMIN 4.1 GM/DL (3.2-4.5); ALKALINE PHOSPHATASE 63 U/L (40-136); BILIRUBIN,TOTAL 0.4 MG/DL (0.1-1.0); BUN/CREATININE RATIO 8; CALCIUM 8.9 MG/DL (8.5-10.1); CARBON DIOXIDE 27 MMOL/L (21-32); CHLORIDE 104 MMOL/L (98-107); CREATININE SERUM 1.33 MG/DL (0.60-1.30); GFR ESTIMATED > 60; GLUCOSE 129 MG/DL (70-105); POTASSIUM 4.2 MMOL/L (3.6-5.0); SODIUM 140 MMOL/L (135-145); TOTAL PROTEIN 6.6 GM/DL (6.4-8.2); URIC ACID 4.6 MG/DL (2.6-7.2)
[2018-06-27] MEDS ORDERED: KETOROLAC 30 MG/ML VIAL IVP ONE (20:30)
[2018-06-27 20:50] VITALS: BP 126/65
== END 2018-06-27 20:48 | disposition home or self-care (01) ==
LOC: EDUNIT# 18:21 → ER 18:22
DX: R60.0 Localized edema (principal); J44.9 Chronic obstructive pulmonary disease, unspecified; I10 Essential (primary) hypertension; Z77.22 Contact with and (suspected) exposure to environmental tobacco smoke (acute) (chronic); Z98.890 Other specified postprocedural states
CPT/HCPCS: 36415; 80053; 83880; 84550; 85025; 85652; 86141

== ENCOUNTER 2019-02-15 11:21 | Emergency (ER) | payer SELFPAY ==
[~2019-02-15] VITALS: Ht 170.1 cm; Wt 75.1 kg
--- NOTE | 2019-02-15 12:26 | Diagnostic Imaging Report ---
INDICATION: Cough and congestion. TIME OF EXAM: 12:11 p.m. COMPARISON: Comparison is made with prior chest from 01/28/2013. FINDINGS: The heart size is normal. The pulmonary vascularity is unremarkable. The lungs are clear. No infiltrate, effusion or pneumothorax is detected. IMPRESSION: No acute cardiopulmonary process is detected. Dictated by: Dictated on workstation # [id number]
--- NOTE | 2019-02-15 12:35 | ED Cough/URI ---
General Chief Complaint: Cough/Cold/Flu Symptoms Stated Complaint: COUGH Nursing Triage Note: C/O COUGH CONGESTION SINCE YESTERDAY COUGHING UP GREEN PHELGM Sepsis Screen: No Definite Risk Source: patient Exam Limitations: no limitations History of Present Illness Date Seen by Provider: Feb 15, 2019 Time Seen by Provider: 12:34 Initial Comments To ER with a productive cough since yesterday, sore throat, runny nose, fever up to 102 Timing/Duration: just prior to arrival Severity/Quality: productive cough Associated Symptoms: cough, shortness of breath Allergies and Home Medications Allergies Coded Allergies: No Known Drug Allergies (Unverified , 01/28/13) Home Medications Propranolol HCl 40 Mg Tablet, 40 MG PO BID, (Reported) Patient Home Medication List Home Medication List Reviewed: Yes Review of Systems Review of Systems Constitutional: see HPI EENTM: see HPI Respiratory: see HPI, cough Cardiovascular: no symptoms reported Genitourinary: no symptoms reported Musculoskeletal: no symptoms reported Skin: no symptoms reported Psychiatric/Neurological: No Symptoms Reported Hematologic/Lymphatic: No Symptoms Reported Immunological/Allergic: no symptoms reported Past Jkbxvru-Nyzgjj-Wmfwsu Hx Patient Social History Alcohol Use: Occasionally Uses Alcohol Beverage of Choice: Beer Recreational Drug Use: No Drug of Choice: cannibus Smoking Status: Current Everyday Smoker Type Used: Cigarettes 2nd Hand Smoke Exposure: Yes Recent Foreign Travel: No Contact w/Someone Who Travel: No Recent Infectious Disease Expo: No Recent Hopitalizations: No Immunizations Up To Date Tetanus Booster (TDap): Unknown Seasonal Allergies Seasonal Allergies: No Past Medical History Surgeries: Yes (testicular removal) Orthopedic Respiratory: Yes Asthma, Chronic Bronchitis, COPD Cardiac: Yes Hypertension Neurological: No Genitourinary: No Gastrointestinal: No Musculoskeletal: No Endocrine: No HEENT: No Cancer: No Psychosocial: No Integumentary: No Blood Disorders: No Family Medical History No Pertinent Family Hx Physical Exam Vital Signs - First Documented 02/15/19 11:26 Temp 35.3 Pulse 74 Resp 18 B/P (MAP) 101/62 (75) Pulse Ox 99 O2 Delivery Room Air Capillary Refill : Less Than 3 Seconds Height: 5'7.00" Weight: 180lbs. oz. 81.203143hb; 25.00 BMI Method:Stated General Appearance: WD/WN, no apparent distress Eyes: Bilateral Eye Normal Inspection, Bilateral Eye PERRL, Bilateral Eye EOMI HEENT: PERRL/EOMI, normal ENT inspection Neck: non-tender, full range of motion Respiratory: lungs clear, normal breath sounds, no respiratory distress, no accessory muscle use Cardiovascular: regular rate, rhythm, no murmur Gastrointestinal: normal bowel sounds, non tender, soft Neurologic/Psychiatric: alert, normal mood/affect, oriented x 3 Skin: normal color, warm/dry Progress/Results/Core Measures Suspected Sepsis Recent Fever Within 48 Hours: No Infection Criteria Present: None New/Unexplained Altered Menta: No Sepsis Screen: No Definite Risk SIRS Temperature: Pulse: 74 Respiratory Rate: 18 Blood Pressure 101 /62 Mean: 75 Results/Orders Micro Results Microbiology 02/15/19 Influenza Types A,B Antigen (RUTH) - Final, Complete My Orders Orders - HILARY BLUNT APRN Chest Pa/Lat (2 View) (02/15/19 11:43) Influenza A And B Antigens (02/15/19 11:43) Vital Signs/I&O 02/15/19 11:26 Temp 35.3 Pulse 74 Resp 18 B/P (MAP) 101/62 (75) Pulse Ox 99 O2 Delivery Room Air Capillary Refill : Less Than 3 Seconds Blood Pressure Mean: 75 POS Departure Impression Primary Impression: Upper respiratory infection Qualified Codes: J06.9 - Acute upper respiratory infection, unspecified Disposition: 01 HOME, SELF-CARE Condition: Stable Departure-Patient Inst. Decision time for Depature: 12:35 Referrals: [facility]/ (PCP) Primary Care Physician FIDE CASTRO (Family) Primary Care Physician Patient Instructions: Viral Upper Respiratory Infection, Adult (DC) Add. Discharge Instructions: 1. Bpmz-qmw-rntyjup cough and cold medication such as NyQuil or DayQuil. Follow- up with your doctor in 1-2 weeks for recheck. If you have persistent symptoms then an antibiotic may be warranted, currently this is viral and antibiotics do not help. All discharge instructions reviewed with patient and/or family. Voiced understanding. Work/School Note: Work Release Form Date Seen in the Emergency Department: Feb 15, 2019 Return to Work: Feb 17, 2019 HILARY BLUNT APRN Feb 15, 2019 12:35 POS
[2019-02-15 13:01] VITALS: BP 101/62
== END 2019-02-15 13:00 | disposition home or self-care (01) ==
LOC: EDUNIT# 11:21 → ER 11:22
DX: J06.9 Acute upper respiratory infection, unspecified (principal); I10 Essential (primary) hypertension; J44.9 Chronic obstructive pulmonary disease, unspecified; F17.210 Nicotine dependence, cigarettes, uncomplicated
CPT/HCPCS: 71046; 87804

== ENCOUNTER 2019-07-03 09:20 | Emergency (ER) | payer BC, OTHER ==
[~2019-07-03] VITALS: Ht 170.2 cm; Wt 81.6 kg
--- NOTE | 2019-07-03 09:37 | NUR ---
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
[2019-07-03] MEDS ORDERED: LIDOCAINE 2% VISCOUS 15 ML UDC PO ONE (10:30)
--- NOTE | 2019-07-03 10:35 | ED EENT ---
History of Present Illness General Chief Complaint: Dental Problems/Pain Stated Complaint: FEVER;DENTAL PAIN Nursing Triage Note: PT TO TRIAGE BY WHEELCHAIR WITH COMPLAINT OF BROKEN TEETH AND "ABSCESSES". PER SIGNIFICANT OTHER, PT HAS NOT BEEN ACTING HIMSELF. PT IS ALERT AND ORIENTED X4. Source: patient Exam Limitations: no limitations History of Present Illness Date Seen by Provider: Jul 03, 2019 Time Seen by Provider: 10:21 Initial Comments Patient resents ER by private conveyance with chief complaint of bilateral lower jaws impacted wisdom teeth pain and if feel some discharge from the teeth. He is not having any fever nausea vomiting or diarrhea. He says it started about a day and a half ago. His been going on chronically for the last 8-10 years. He does not follow with a dentist. He has not been on antibiotics recently. He's been using ibuprofen for the pain with modest relief. Allergies and Home Medications Allergies Coded Allergies: No Known Drug Allergies (Unverified , 01/28/13) Home Medications Propranolol HCl 40 Mg Tablet, 40 MG PO BID, (Reported) Patient Home Medication List Home Medication List Reviewed: Yes Review of Systems Review of Systems Constitutional: No chills, No fever Eyes: Denies Blindness, Denies Drainage Ears: Denies Dizziness, Denies Pain Nose: denies clots, denies congestion Mouth: see HPI, pain; denies swelling Throat: denies pain, denies swelling All Other Systems Reviewed Negative Unless Noted: Yes Past Pgkoybn-Fnndsw-Wofiqo Hx Patient Social History Alcohol Use: Occasionally Uses Number of Drinks Today: AA Alcohol Beverage of Choice: Beer Recreational Drug Use: No Drug of Choice: cannibus Smoking Status: Current Everyday Smoker Type Used: Cigarettes 2nd Hand Smoke Exposure: Yes Recent Foreign Travel: No Contact w/Someone Who Travel: No Recent Infectious Disease Expo: No Recent Hopitalizations: No Immunizations Up To Date Tetanus Booster (TDap): Unknown PED Vaccines UTD: Yes Seasonal Allergies Seasonal Allergies: No Past Medical History Surgeries: Yes (testicular removal) Orthopedic Respiratory: Yes Asthma, Chronic Bronchitis, COPD Cardiac: Yes Hypertension Neurological: No Genitourinary: No Gastrointestinal: No Musculoskeletal: No Endocrine: No HEENT: No Cancer: No Psychosocial: No Integumentary: No Blood Disorders: No Family Medical History No Pertinent Family Hx Physical Exam Vital Signs Vital Signs - First Documented 07/03/19 09:27 Temp 36.8 Pulse 70 Resp 20 B/P (MAP) 112/78 (89) Pulse Ox 98 O2 Delivery Room Air Height, Weight, BMI Height: 5'7.00" Weight: 180lbs. oz. 81.221976hs; 28.00 BMI Method:Stated General Appearance: WD/WN, mild distress Eyes: bilateral eye normal inspection, bilateral eye PERRL, bilateral eye EOMI Ears: bilateral ear auricle normal, bilateral ear canal normal, bilateral ear TM normal Nose: normal inspection; No discharge Mouth/Throat: other (extensive dental caries with some gingival erythema but no pointing or fluctuance. Nontender to palpation over the mandible area) Neck: non-tender, full range of motion, supple, normal inspection Cardiovascular: normal peripheral pulses, regular rate, rhythm Respiratory: no respiratory distress, no accessory muscle use Neurologic/Psychiatric: alert, normal mood/affect Progress/Results/Core Measures Results/Orders Vital Signs/I&O 07/03/19 09:27 Temp 36.8 Pulse 70 Resp 20 B/P (MAP) 112/78 (89) Pulse Ox 98 O2 Delivery Room Air Blood Pressure Mean: 89 Progress Progress Note : Time: 10:32 Progress Note The patient declined Toradol. We will give him some viscous lidocaine and put him on clindamycin. He says clindamycin has helped him more in the past than amoxicillin has. Departure Impression Primary Impression: Pain due to dental caries Disposition: 01 HOME, SELF-CARE Condition: Stable Departure-Patient Inst. Decision time for Depature: 10:33 Referrals: [facility] (PCP) Primary Care Physician FIDE CASTRO (Family) Primary Care Physician Patient Instructions: Dental Pain Add. Discharge Instructions: Tylenol 1000 mg every 8 hours as needed for pain. Ibuprofen 800 mg every 8 hours as needed for pain. Warm compresses applied to the jaw as necessary for pain. 5 cc of viscous lidocaine on gauze applied directly over the tooth that hurts as necessary for breakthrough pain. Start the clindamycin today; 450 mg 3 times a day. Take the antibiotic with food and probiotics twice a day to prevent upset sto mach or diarrhea. Follow-up with dentist for examination and recommendation for further treatment. All discharge instructions reviewed with patient and/or family. Voiced understanding. Scripts Clindamycin HCl (Clindamycin HCl) 150 Mg Capsule 450 MG PO TID for 7 Days, #63 CAP 0 Refills Prov: TANNA REARDON 07/03/19 TANNA REARDON Jul 03, 2019 10:35
[2019-07-03] MEDS ORDERED: CLIN150C17 PO (10:36)
[2019-07-03 10:39] VITALS: BP 112/78
== END 2019-07-03 10:39 | disposition home or self-care (01) ==
LOC: EDUNIT# 09:20 → ER 09:21
DX: K02.9 Dental caries, unspecified (principal); F17.210 Nicotine dependence, cigarettes, uncomplicated
CPT/HCPCS: 99283

== ENCOUNTER 2019-09-26 23:10 | Emergency (ER) | payer BC ==
[~2019-09-26] VITALS: Ht 170 cm; Wt 70.0 kg
[~2019-09-26 23:10] MED LIST changes: +CLIN150C17 PO
[2019-09-26 23:25] LABS: BASOPHILS % (AUTO) 0 % (0-10); EOSINOPHILS # (AUTO) 0.3 10^3/uL (0.0-0.3); EOSINOPHILS % (AUTO) 3 % (0-10); HEMATOCRIT 40 % (40-54); LYMPHOCYTES # (AUTO) 4.7 X 10^3 (1.0-4.0); LYMPHOCYTES % (AUTO) 44 % (12-44); MEAN CORPUSCULAR HEMOGLOBIN 31 PG (25-34); MEAN CORPUSCULAR HGB CONC 35 G/DL (32-36); MEAN CORPUSCULAR VOLUME 89 FL (80-99); MEAN PLATELET VOLUME 10.4 FL (7.4-10.4); MONOCYTES # (AUTO) 1.1 X 10^3 (0.0-1.0); MONOCYTES % (AUTO) 10 % (0-12); NEUTROPHILS # (AUTO) 4.8 X 10^3 (1.8-7.8); NEUTROPHILS % (AUTO) 44 % (42-75); PLATELET COUNT 254 10^3/uL (130-400); RED CELL DISTRIBUTION WIDTH 12.3 % (10.0-14.5); WHITE BLOOD COUNT 10.9 10^3/uL (4.3-11.0)
[2019-09-26 23:35] LABS: ALBUMIN 4.2 GM/DL (3.2-4.5); CHLORIDE 105 MMOL/L (98-107); POTASSIUM 3.8 MMOL/L (3.6-5.0); SODIUM 137 MMOL/L (135-145)
[2019-09-26 23:38] LABS: GLUCOSE 147 MG/DL (70-105); TOTAL PROTEIN 6.9 GM/DL (6.4-8.2)
[2019-09-26 23:39] LABS: CARBON DIOXIDE 23 MMOL/L (21-32)
[2019-09-26 23:40] LABS: BILIRUBIN,TOTAL 0.3 MG/DL (0.1-1.0)
[2019-09-26 23:41] LABS: ALKALINE PHOSPHATASE 61 U/L (40-136)
[2019-09-26 23:42] LABS: CREATININE SERUM 0.91 MG/DL (0.60-1.30); GFR ESTIMATED > 60
[2019-09-26 23:43] LABS: BUN/CREATININE RATIO 18
[2019-09-26 23:45] LABS: ACETAMINOPHEN < 10 UG/ML (10-30); LIPASE 66 U/L (8-78)
[2019-09-26 23:46] LABS: CREATINE KINASE 241 U/L (30-200)
[2019-09-26 23:51] LABS: INR 0.9 (0.8-1.4); PROTHROMBIN TIME PATIENT 12.4 SEC (12.2-14.7)
[2019-09-26 23:52] LABS: CREATINE KINASE MB 1.4 NG/ML (<6.6)
[2019-09-26 23:59] LABS: BILIRUBIN,URINE NEGATIVE (NEGATIVE); CLARITY,URINE CLEAR; COLOR,URINE YELLOW; GLUCOSE, URINE (UA) NEGATIVE (NEGATIVE); KETONES,URINE NEGATIVE (NEGATIVE); LEUKOCYTE ESTERASE ,URINE NEGATIVE (NEGATIVE); NITRITE,URINE NEGATIVE (NEGATIVE); PROTEIN,URINE NEGATIVE (NEGATIVE)
[2019-09-27 00:05] LABS: TSH (THYROID ANALYZER) 2.69 UIU/ML (0.35-4.94)
[2019-09-27 00:06] LABS: BACTERIA,URINE NEGATIVE /HPF
[2019-09-27 00:07] LABS: SQUAMOUS EPITHELIAL CELL,UR RARE /HPF
[2019-09-27 00:20] LABS: ALANINE AMINOTRANSFERASE < 30 U/L (0-55)
[2019-09-27 00:26] LABS: AMPHETAMINE SCREEN, URINE POSITIVE (NEGATIVE); BARBITURATE SCREEN URINE NEGATIVE (NEGATIVE); BENZODIAZEPINES SCREEN URINE NEGATIVE (NEGATIVE); CANNABINOID SCREEN, URINE NEGATIVE (NEGATIVE); COCAINE SCREEN URINE NEGATIVE (NEGATIVE); METHADONE STAT NEGATIVE (NEGATIVE); METHAMPHETAMINE SCREEN URINE S NEGATIVE (NEGATIVE); OPIATE SCREEN URINE NEGATIVE (NEGATIVE); OXYCODONE STAT NEGATIVE (NEGATIVE); PROPOXYPHENE STAT NEGATIVE (NEGATIVE); TRICYCLIC ANTIDEPRESSANTS SCRE NEGATIVE (NEGATIVE)
--- NOTE | 2019-09-27 01:33 | ED General ---
General Chief Complaint: Altered Mental Status Stated Complaint: AMS Nursing Triage Note: Pt to RM 3 via [facility] with family complaints that pt was "unresponsive". Pt states he was watching TV then woke up and was in an ambulance. PT denies taking any recreational drugs or feeling sick recently. EMS reports pt was alert on arrival to residence, eyes open and moving, nonverbal at scene. Pt is awake, alert and talking on arrival. Nursing Sepsis Screen: No Definite Risk Source of Information: Patient, EMS History of Present Illness Date Seen by Provider: Sep 26, 2019 Time Seen by Provider: 23:10 Initial Comments PT ARRIVES VIA EMS FROM HOME PT STATES HE WAS LAYING DOWN AND WATCHING TV, THEN THEN NEXT THING HE RECALLS IS THE AMBULANCE STAFF BEING PRESENT EMS WAS CALLED BY [facility] BECAUSE PT "WOULDN'T RESPOND"--HIS EYES WERE OPEN AND HE WAS LOOKING AROUND BUT WOULDN'T TALK IS UNCLEAR HOW LONG THIS LASTED, BUT REPORTEDLY WAS FOR ONLY A SHORT PERIOD OF TIME ACCUCHECK 140 BY EMS ON ARRIVAL HERE. PT IS AWAKE, ALERT, ORIENTED X 4, ABLE TO ANSWER ALL QUESTIONS APPROPRIATELY, FOLLOW ALL COMMANDS AND HAS CLEAR SPEECH PT DOES NOT HAVE ANY COMPLAINTS OTHER THAN FEELING WEAK RIGHT NOW STATES HE HAS BEEN FINE ALL DAY STATES HE WORKS AT [employer], BUT HAS NOT WORKED SINCE Tuesday09/21/19, AND STATES HE "SAT AROUND THE HOUSE ALL DAY" TODAY AND FELT FINE. STATES HE HAS BEEN EATING AND DRINKING NORMALLY TODAY, URINATING NORMALLY NO NAUSEA/VOMITING/DIARRHEA OR ABDOMINAL PAIN NO HEADACHE NO VISION CHANGES NO DIZZINESS NO PARESTHESIAS OR MOTOR DEFICITS NO FEVER OR RECENT ILLNESS, NO COUGH OR URI SYMPTOMS NO KNOWN SICK CONTACTS OR EXPOSURE TO COVID-19 DENIES ALCOHOL OR DRUG USE DENIES ANY HISTORY OF SEIZURES, STROKE/TIA OR CARDIAC OR PULMONARY PROBLEMS STATES HE HAD SIMILAR EPISODE A FEW YEARS AGO AND WAS DX WITH HTN AT THAT TIME PT HAD BEEN ON PROPRANOLOL 80 MG BID FOR A LONG TIME, BUT A COUPLE OF MONTHS AGO, IT WAS DISCONTINUED AND PT WAS STARTED ON ATENOLOL 100 MG DAILY, AND THEN A FEW WEEKS AGO LISINOPRIL 10 MG DAILY WAS ADDED TO THE ATENOLOL PT STATES HE HAS TAKEN HIS MEDICATIONS TODAY AND DENIES ANY MISSED DOSES STATES HE HAS BEEN HAVING SOME LEFT LOWER RIB/CHEST PAIN AND SHORTNESS OF BREATH OFF AND ON FOR A FEW WEEKS, BUT NOT NOW AND NONE TODAY HAS NOT SOUGHT CARE FOR THOSE SYMPTOMS PCP: [facility], REBEKAH CASTRO Allergies and Home Medications Allergies Coded Allergies: No Known Drug Allergies (Unverified , 09/26/19) Home Medications Clindamycin HCl 150 Mg Capsule, 450 MG PO TID Prescribed by: TANNA REARDON on 07/03/19 1036 Propranolol HCl 40 Mg Tablet, 40 MG PO BID, (Reported) Patient Home Medication List Home Medication List Reviewed: Yes Review of Systems Review of Systems Constitutional: see HPI; No chills, No diaphoresis, No dizziness, No fever; malaise, weakness EENTM: no symptoms reported; No blurred vision, No eye pain, No nose congest ion, No throat pain Respiratory: see HPI; No cough Cardiovascular: see HPI; No edema, No palpitations Gastrointestinal: no symptoms reported; No abdominal pain, No constipation, No diarrhea, No loss of appetite, No nausea, No vomiting Genitourinary: no symptoms reported; No decreased output Musculoskeletal: no symptoms reported; No back pain, No joint pain, No muscle pain, No neck pain Skin: no symptoms reported; No rash Psychiatric/Neurological: See HPI; Denies Headache, Denies Numbness, Denies Paresthesia, Denies Seizure, Denies Tingling, Denies Tremors, Denies Weakness Hematologic/Lymphatic: No Symptoms Reported Immunological/Allergic: no symptoms reported Past Wwmtxfn-Tividj-Snxpse Hx Patient Social History Alcohol Use: Occasionally Uses (OCCASIONAL USE NOW, BUT HAS HISTORY OF HEAVY/DAILY USE) Number of Drinks Today: AA Alcohol Beverage of Choice: Beer Recreational Drug Use: Yes (THC) Drug of Choice: THC Smoking Status: Current Everyday Smoker (1 04/19 PPD) Type Used: Cigarettes 2nd Hand Smoke Exposure: Yes Recent Foreign Travel: No Contact w/Someone Who Travel: No Recent Infectious Disease Expo: No Recent Hopitalizations: No Immunizations Up To Date Tetanus Booster (TDap): Unknown PED Vaccines UTD: Yes Seasonal Allergies Seasonal Allergies: No Past Medical History Surgeries: Yes (LEFT ORCHIECTOMY; LEFT KNEE SCOPE) Orthopedic, Testicular Respiratory: Yes Asthma, Chronic Bronchitis, COPD Cardiac: Yes Hypertension Neurological: No Reproductive Disorders: Yes (LEFT ORCHIECTOMY FOR BENIGN TUMOR, PER PT) Genitourinary: Yes (LEFT ORCHIECTOMY) Gastrointestinal: No Musculoskeletal: Yes (LEFT KNEE SCOPE) Endocrine: No HEENT: No Cancer: No Psychosocial: No Integumentary: No Blood Disorders: No Family Medical History No Pertinent Family Hx Physical Exam Vital Signs Vital Signs - First Documented 09/26/19 23:11 Temp 36.3 Pulse 68 Resp 20 B/P (MAP) 142/85 (104) Pulse Ox 100 O2 Delivery Room Air Capillary Refill : Less Than 3 Seconds Height, Weight, BMI Height: 5'7.00" Weight: 180lbs. oz. 81.780897xp; 24.00 BMI Method:Stated General Appearance: No Apparent Distress, WD/WN, Other (UNKEMPT, REEKS OF CIGARETTES. FLAT AFFECT, BUT SPEECH IS CLEAR) HEENT: PERRL/EOMI, TMs Normal, Normal ENT Inspection, Pharynx Normal, Other (POOR DENTITION) Neck: Full Range of Motion, Normal Inspection, Non Tender, Supple; No Carotid Bruit, No JVD Respiratory: Chest Non Tender, Normal Breath Sounds, No Accessory Muscle Use, No Respiratory Distress Cardiovascular: Regular Rate, Rhythm, No Edema, No JVD, No Murmur, Normal Peripheral Pulses Gastrointestinal: Normal Bowel Sounds, No Organomegaly, No Pulsatile Mass, Non Tender, Soft Back: Normal Inspection, No CVA Tenderness Extremity: Normal Capillary Refill, Normal Inspection, Normal Range of Motion, Non Tender, No Calf Tenderness, No Pedal Edema Neurologic/Psychiatric: Alert, Oriented x3, No Motor/Sensory Deficits, Normal Mood/Affect, 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 defense 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 II-XII Norm as Tested; No Abnormal Cerebellar Tests Reflexes: 1+ Bicep (R), 1+ Bicep (L), 1+ Knee (R), 1+ Knee (L) Skin: Normal Color, Warm/Dry Progress/Results/Core Measures Suspected Sepsis Recent Fever Within 48 Hours: No Infection Criteria Present: None New/Unexplained Altered Menta: No Sepsis Screen: No Definite Risk SIRS Temperature: Pulse: 68 Respiratory Rate: 20 Laboratory Tests 09/26/19 23:10: White Blood Count 10.9 Blood Pressure 142 /85 Mean: 104 Laboratory Tests 09/26/19 23:10: Creatinine 0.91, Platelet Count 254, Total Bilirubin 0.3 09/26/19 23:32: INR Comment 0.9 Results/Orders Lab Results Laboratory Tests Test 09/26/19 23:10 09/26/19 23:32 09/26/19 23:33 09/26/19 23:53 Range/Units White Blood Count 10.9 4.3-11.0 10^3/uL Red Blood Count 4.47 4.35-5.85 10^6/uL Hemoglobin 14.0 13.3-17.7 G/DL Hematocrit 40 40-54 % Mean Corpuscular Volume 89 80-99 FL Mean Corpuscular Hemoglobin 31 25-34 PG Mean Corpuscular Hemoglobin Concent 35 32-36 G/DL Red Cell Distribution Width 12.3 10.0-14.5 % Platelet Count 254 130-400 10^3/uL Mean Platelet Volume 10.4 7.4-10.4 FL Neutrophils (%) (Auto) 44 42-75 % Lymphocytes (%) (Auto) 44 12-44 % Monocytes (%) (Auto) 10 0-12 % Eosinophils (%) (Auto) 3 0-10 % Basophils (%) (Auto) 0 0-10 % Neutrophils # (Auto) 4.8 1.8-7.8 X 10^3 Lymphocytes # (Auto) 4.7 H 1.0-4.0 X 10^3 Monocytes # (Auto) 1.1 H 0.0-1.0 X 10^3 Eosinophils # (Auto) 0.3 0.0-0.3 10^3/uL Basophils # (Auto) 0.0 0.0-0.1 10^3/uL Sodium Level 137 135-145 MMOL/L Potassium Level 3.8 3.6-5.0 MMOL/L Chloride Level 105 98-107 MMOL/L Carbon Dioxide Level 23 21-32 MMOL/L Anion Gap 9 5-14 MMOL/L Blood Urea Nitrogen 16 7-18 MG/DL Creatinine 0.91 0.60-1.30 MG/DL Estimat Glomerular Filtration Rate > 60 BUN/Creatinine Ratio 18 Glucose Level 147 H 70-105 MG/DL Calcium Level 9.0 8.5-10.1 MG/DL Corrected Calcium 8.8 8.5-10.1 MG/DL Magnesium Level 2.0 1.6-2.4 MG/DL Total Bilirubin 0.3 0.1-1.0 MG/DL Aspartate Amino Transf (AST/SGOT) 15 5-34 U/L Alanine Aminotransferase (ALT/SGPT) < 30 0-55 U/L Alkaline Phosphatase 61 40-136 U/L Total Creatine Kinase 241 H 30-200 U/L Creatine Kinase MB 1.4 <6.6 NG/ML Myoglobin 20.3 10.0-92.0 NG/ML Troponin I < 0.028 <0.028 NG/ML B-Type Natriuretic Peptide < 10.0 <100.0 PG/ML Total Protein 6.9 6.4-8.2 GM/DL Albumin 4.2 3.2-4.5 GM/DL Amylase Level 84 25-125 U/L Lipase 66 8-78 U/L TSH Tucker Testing 2.69 0.35-4.94 UIU/ML Acetaminophen Level < 10 L 10-30 UG/ML Serum Alcohol < 10 <10 MG/DL Prothrombin Time 12.4 12.2-14.7 SEC INR Comment 0.9 0.8-1.4 Activated Partial Thromboplast Time 25 24-35 SEC Glucometer 146 H 70-110 MG/DL Urine Color YELLOW Urine Clarity CLEAR Urine pH 6.0 5-9 Urine Specific Mclaughlin 1.025 H 1.016-1.022 Urine Protein NEGATIVE NEGATIVE Urine Glucose (UA) NEGATIVE NEGATIVE Urine Ketones NEGATIVE NEGATIVE Urine Nitrite NEGATIVE NEGATIVE Urine Bilirubin NEGATIVE NEGATIVE Urine Urobilinogen 1.0 < = 1.0 MG/DL Urine Leukocyte Esterase NEGATIVE NEGATIVE Urine RBC (Auto) NEGATIVE NEGATIVE Urine RBC NONE /HPF Urine WBC NONE /HPF Urine Squamous Epithelial Cells RARE /HPF Urine Crystals NONE /LPF Urine Bacteria NEGATIVE /HPF Urine Casts NONE /LPF Urine Mucus NEGATIVE /LPF Urine Culture Indicated NO Urine Opiates Screen NEGATIVE NEGATIVE Urine Oxycodone Screen NEGATIVE NEGATIVE Urine Methadone Screen NEGATIVE NEGATIVE Urine Propoxyphene Screen NEGATIVE NEGATIVE Urine Barbiturates Screen NEGATIVE NEGATIVE Ur Tricyclic Antidepressants Screen NEGATIVE NEGATIVE Urine Phencyclidine Screen NEGATIVE NEGATIVE Urine Amphetamines Screen POSITIVE H NEGATIVE Urine Methamphetamines Screen NEGATIVE NEGATIVE Urine Benzodiazepines Screen NEGATIVE NEGATIVE Urine Cocaine Screen NEGATIVE NEGATIVE Urine Cannabinoids Screen NEGATIVE NEGATIVE My Orders Orders - JOHNATHON HAQ DO Accucheck Stat ONCE (09/26/19 23:17) Ed Iv/Invasive Line Start (09/26/19 23:17) Ekg Tracing (09/26/19 23:17) Monitor-Rhythm Ecg Trace Only (09/26/19 23:17) Acetaminophen (09/26/19 23:17) Alcohol (09/26/19 23:17) BNP (09/26/19 23:17) Cbc With Automated Diff (09/26/19 23:17) Comprehensive Metabolic Panel (09/26/19 23:17) Creatine Kinase (09/26/19 23:17) Creatine Kinase Mb (09/26/19 23:17) Drug Screen Stat (Urine) (09/26/19 23:17) Lipase (09/26/19 23:17) Magnesium (09/26/19 23:17) Protime With Inr (09/26/19 23:17) Partial Thromboplastin Time (09/26/19 23:17) Thyroid Analyzer (09/26/19 23:17) Ua Culture If Indicated (09/26/19 23:17) Troponin I (09/26/19 23:17) Myoglobin Serum (09/26/19 23:17) Ed Iv/Invasive Line Start (09/26/19 23:17) Amylase (09/26/19 23:17) Ct Head Wo-R/O Stroke (09/27/19 00:01) Chest 1 View, Ap/Pa Only (09/27/19 00:01) Vital Signs/I&O 09/26/19 09/27/19 23:11 01:48 Temp 36.3 36.3 Pulse 68 68 Resp 20 20 B/P (MAP) 142/85 (104) 123/79 (104) Pulse Ox 100 100 O2 Delivery Room Air Room Air Capillary Refill : Less Than 3 Seconds Blood Pressure Mean: 104 Point of Care Testing Finger Stick Blood Glucose: 146 Progress Note : Progress Note UNEVENTFUL ER STAY, NORMAL VITALS SIGNS AT DISMISSAL--O2 SAT 100%, RESPIRATIONS 16-18, HR IN 70'S, BP 123/79 NO COMPLAINTS DURING ER STAY, AND SLEPT FOR MOST OF STAY, EASILY AWAKENS AND IS ALERT/ORIENTED X 4 WITH CLEAR SPEECH. AT DISMISSAL, PT SITS UPRIGHT AND WALKS OUT OF ER AND MOVES QUICKLY WITHOUT ANY DIFFICULTY WHATSOEVER. ECG Initial ECG Impression Date: Sep 26, 2019 Initial ECG Impression Time: 23:11 Initial ECG Rate: 71 Initial ECG Rhythm: Normal Sinus Diagnostic Imaging Comments CXR--NO ACUTE PROCESS, PENDING RADIOLOGIST REVIEW CT HEAD--NO ACUTE PROCESS, PER [facility] VIA FAX AT 0127 Reviewed: Reviewed by Me Departure Impression Primary Impression: Generalized weakness Additional Impressions: REPORTED BRIEF ALTERED MENTAL STATUS UDS + FOR AMPHETAMINES Disposition: HOME, SELF-CARE Condition: Stable Departure-Patient Inst. Referrals: [facility] (PCP) Primary Care Physician FIDE CASTRO (Family) Primary Care Physician Patient Instructions: ALTERED LEVEL OF CONSCIOUSNESS, Amphetamine, Drug Abuse and Drug Addiction (DC), Generalized Weakness (DC) Add. Discharge Instructions: NO DRUGS!!!! NO ALCOHOL!! TAKE YOUR MEDICATIONS EXACTLY PRESCRIBED LOTS OF CLEAR LIQUIDS--WATER, BROTH, JELLO, GATORADE FOLLOW UP WITH YOUR DR IN 1-2 DAYS IF SYMPTOMS PERSIST, RETURN TO ER IF WORSE All discharge instructions reviewed with patient and/or family. Voiced understanding. JOHNATHON HAQ DO Sep 27, 2019 01:33
[2019-09-27 01:48] VITALS: BP 123/79
--- NOTE | 2019-09-27 05:51 | Diagnostic Imaging Report ---
Portable erect AP chest at 1221 hours. INDICATION: Altered mental status. FINDINGS: The heart size is within normal limits and stable when compared to 02/15/2019. The lungs are clear. There is no evidence for failure, pneumonia or for pleural effusion. The mediastinum is not widened. The osseous structures are intact. The small calcification overlying the left upper quadrant seen previously is again evident and no different. IMPRESSION: There is no evidence for an acute cardiopulmonary abnormality. Dictated by: Dictated on workstation # [id number]
--- NOTE | 2019-09-27 05:51 | Diagnostic Imaging Report ---
PROCEDURE: CT head wo r/o stroke. TECHNIQUE: Multiple contiguous axial images were obtained through the brain without the use of intravenous contrast. Auto Exposure Controls were utilized during the CT exam to meet ALARA standards for radiation dose reduction. INDICATION: Altered mental status There is no mass, shift of the midline or hemorrhage to suggest an acute intracranial abnormality. The ventricles are not abnormally dilated and stable in size when compared to the prior CT head exam of 11/09/2016. The bone windows show no evidence for a fracture or for a destructive lesion. The orbits are symmetrical and within normal limits. The sinuses are generally clear. There is mild mucosal thickening of the lateral wall of the right maxillary antrum and of the ethmoid sinuses. IMPRESSION: 1. There is no evidence for an acute intracranial abnormality. When compared to the prior study, there has been no significant change. 2. If clinical concern regarding an underlying abnormality persists, then MRI would be recommended for further study. Dictated by: Dictated on workstation # [id number]
== END 2019-09-27 01:52 | disposition home or self-care (01) ==
LOC: EDUNIT# 23:10 → ER 23:11
DX: R53.1 Weakness (principal); R41.82 Altered mental status, unspecified; R78.4 Finding of other drugs of addictive potential in blood; F15.10 Other stimulant abuse, uncomplicated; I10 Essential (primary) hypertension; F17.210 Nicotine dependence, cigarettes, uncomplicated
CPT/HCPCS: 36415; 70450; 71045; 80053; 80306; 80320; 80329; 81000; 82150; 82550; 82553; 82962; 83690; 83735; 83874; 83880; 84443; 84484; 85025; 85610; 85730; 93005; 93041

== ENCOUNTER 2019-12-03 09:49 | Emergency (ER) | payer BC ==
[~2019-12-03] VITALS: Ht 170.2 cm; Wt 72.7 kg
[~2019-12-03 09:49] MED LIST changes: +ATEN100T PO; +LISI10TA2 PO; +OMEG-160 PO; +PARO20TA5 PO
[2019-12-03 10:06] LABS: BASOPHILS % (AUTO) 0 % (0-10); EOSINOPHILS # (AUTO) 0.3 10^3/uL (0.0-0.3); EOSINOPHILS % (AUTO) 2 % (0-10); HEMATOCRIT 39 % (40-54); HEMOGLOBIN 13.6 G/DL (13.3-17.7); LYMPHOCYTES # (AUTO) 3.9 X 10^3 (1.0-4.0); LYMPHOCYTES % (AUTO) 29 % (12-44); MEAN CORPUSCULAR HEMOGLOBIN 31 PG (25-34); MEAN CORPUSCULAR HGB CONC 35 G/DL (32-36); MEAN CORPUSCULAR VOLUME 88 FL (80-99); MEAN PLATELET VOLUME 10.3 FL (7.4-10.4); MONOCYTES # (AUTO) 1.1 X 10^3 (0.0-1.0); MONOCYTES % (AUTO) 8 % (0-12); NEUTROPHILS # (AUTO) 8.4 X 10^3 (1.8-7.8); NEUTROPHILS % (AUTO) 61 % (42-75); PLATELET COUNT 319 10^3/uL (130-400); RED CELL DISTRIBUTION WIDTH 12.8 % (10.0-14.5); WHITE BLOOD COUNT 13.7 10^3/uL (4.3-11.0)
[2019-12-03] MEDS ORDERED: NS IV 1000 ML 1,000 ML IV SCH (10:16)
[2019-12-03 10:18] LABS: ALBUMIN 4.2 GM/DL (3.2-4.5)
[2019-12-03 10:19] LABS: CHLORIDE 103 MMOL/L (98-107); POTASSIUM 4.1 MMOL/L (3.6-5.0); SODIUM 135 MMOL/L (135-145)
[2019-12-03 10:20] LABS: CALCIUM 8.9 MG/DL (8.5-10.1)
[2019-12-03 10:21] LABS: GLUCOSE 128 MG/DL (70-105)
[2019-12-03 10:22] LABS: CARBON DIOXIDE 23 MMOL/L (21-32)
[2019-12-03 10:23] LABS: BILIRUBIN,TOTAL 0.5 MG/DL (0.1-1.0)
[2019-12-03 10:24] LABS: ALKALINE PHOSPHATASE 57 U/L (40-136)
[2019-12-03 10:25] LABS: CREATININE SERUM 0.95 MG/DL (0.60-1.30); GFR ESTIMATED > 60
[2019-12-03 10:26] LABS: BUN/CREATININE RATIO 14
--- NOTE | 2019-12-03 10:26 | ED Chest Pain ---
General Chief Complaint: Chest Pain Stated Complaint: CHEST PAIN Nursing Triage Note: Pt to room #7 via [facility] ems cart from [facility] with c/o L sided chest discomfort radiating to L arm et L jaw. Prior to arrival, ems adm x3 0.4mg SL nitro, 324mg ASA, et 50mcg fentanyl. Pt arrives with 20g iv to L a/c rating pain 4/10 to L chest. Pt reports at 0530 this morining, he was awoke with "chest heaviness." Reports hx CAD. A&OX4. Nursing Sepsis Screen: No Definite Risk Source: patient, EMS, old records Exam Limitations: no limitations History of Present Illness Date Seen by Provider: Dec 03, 2019 Time Seen by Provider: 09:50 Initial Comments This 39-year-old man presents to the emergency room via EMS with chest pain in the left chest and radiating up to the neck. Patient is started around 05:30. He reports pain is worse with activity and better when lying down. He recently underwent cardiac evaluation by Dr. Haji in September including angiography. No obstructive disease was identified. Patient smokes and rarely drinks. He denies any alcohol use. EMS administered nitroglycerin 3. Patient believes this did help his pain a little bit. He also received aspirin 324 mg and fentan yl 50 g. He now complains of headache. He denies any fever, cough, shortness of breath, or pain with inspiration. Allergies and Home Medications Allergies Coded Allergies: Penicillins (Verified Allergy, Unknown, Hives, 10/05/19) Home Medications Clindamycin HCl 150 Mg Capsule, 450 MG PO TID Prescribed by: TANNA REARDON on 07/03/19 1036 Lisinopril 10 Mg Tablet, 10 MG PO DAILY, (Reported) Patient Home Medication List Home Medication List Reviewed: Yes Review of Systems Review of Systems Constitutional: no symptoms reported EENTM: No Symptoms Reported Respiratory: No Symptoms Reported Cardiovascular: See HPI Gastrointestinal: No Symptoms Reported Genitourinary: No Symptoms Reported Musculoskeletal: no symptoms reported Skin: no symptoms reported Psychiatric/Neurological: No Symptoms Reported Endocrine: No Symptoms Reported Hematologic/Lymphatic: No Symptoms Reported Past Bvkuand-Dtdrjw-Ztjaxt Hx Past Med/Social Hx: Reviewed Nursing Past Med/Soc Hx Patient Social History Alcohol Use: Rarely Uses Number of Drinks Today: 0 Alcohol Beverage of Choice: Beer Recreational Drug Use: No Drug of Choice: THC; Distant Hx Methamphetamines Smoking Status: Current Everyday Smoker Type Used: Cigarettes 2nd Hand Smoke Exposure: Yes Recent Foreign Travel: No Contact w/Someone Who Travel: No Recent Infectious Disease Expo: No Recent Hopitalizations: No Immunizations Up To Date Tetanus Booster (TDap): Unknown PED Vaccines UTD: Yes Seasonal Allergies Seasonal Allergies: No Past Medical History Surgeries: Yes (LEFT ORCHIECTOMY; LEFT KNEE SCOPE) Cardiac (cardiac angiography 2020 with no obstructive disease noted), Orthopedic, Testicular Respiratory: Yes Asthma, Chronic Bronchitis, COPD Cardiac: Yes Heart Attack, Hypertension Neurological: No Reproductive Disorders: Yes (LEFT ORCHIECTOMY FOR BENIGN TUMOR, PER PT) Genitourinary: Yes (LEFT ORCHIECTOMY) Gastrointestinal: No Musculoskeletal: Yes (LEFT KNEE SCOPE) Endocrine: No HEENT: No Cancer: No Psychosocial: No Integumentary: No Blood Disorders: No Family Medical History No Pertinent Family Hx Physical Exam Vital Signs Vital Signs - First Documented 12/03/19 09:52 Temp 36.5 Pulse 86 Resp 18 B/P (MAP) 111/69 (83) Pulse Ox 96 O2 Delivery Room Air Capillary Refill : Less Than 3 Seconds Height, Weight, BMI Height: 5'7.00" Weight: 180lbs. oz. 81.070169ts; 25.00 BMI Method:Stated General Appearance: No Apparent Distress, WD/WN, Thin HEENT: PERRL/EOMI, Normal ENT Inspection Neck: Normal Inspection Respiratory: Chest Non Tender, Lungs Clear, Normal Breath Sounds, No Accessory Muscle Use, No Respiratory Distress Cardiovascular: Regular Rate, Rhythm, No Edema, No Murmur, Normal Peripheral Pulses Gastrointestinal: Normal Bowel Sounds, Soft, Tenderness (slight tenderness in the left upper quadrant) Extremity: Normal Inspection, Non Tender, No Pedal Edema Neurologic/Psychiatric: Alert, Oriented x3, No Motor/Sensory Deficits, Normal Mood/Affect Skin: Normal Color, Warm/Dry Progress/Results/Core Measures Results/Orders Lab Results Laboratory Tests Test 12/03/19 09:45 12/03/19 10:30 12/03/19 11:45 Range/Units White Blood Count 13.7 H 4.3-11.0 10^3/uL Red Blood Count 4.45 4.35-5.85 10^6/uL Hemoglobin 13.6 13.3-17.7 G/DL Hematocrit 39 L 40-54 % Mean Corpuscular Volume 88 80-99 FL Mean Corpuscular Hemoglobin 31 25-34 PG Mean Corpuscular Hemoglobin Concent 35 32-36 G/DL Red Cell Distribution Width 12.8 10.0-14.5 % Platelet Count 319 130-400 10^3/uL Mean Platelet Volume 10.3 7.4-10.4 FL Neutrophils (%) (Auto) 61 42-75 % Lymphocytes (%) (Auto) 29 12-44 % Monocytes (%) (Auto) 8 0-12 % Eosinophils (%) (Auto) 2 0-10 % Basophils (%) (Auto) 0 0-10 % Neutrophils # (Auto) 8.4 H 1.8-7.8 X 10^3 Lymphocytes # (Auto) 3.9 1.0-4.0 X 10^3 Monocytes # (Auto) 1.1 H 0.0-1.0 X 10^3 Eosinophils # (Auto) 0.3 0.0-0.3 10^3/uL Basophils # (Auto) 0.0 0.0-0.1 10^3/uL Sodium Level 135 135-145 MMOL/L Potassium Level 4.1 3.6-5.0 MMOL/L Chloride Level 103 98-107 MMOL/L Carbon Dioxide Level 23 21-32 MMOL/L Anion Gap 9 5-14 MMOL/L Blood Urea Nitrogen 13 7-18 MG/DL Creatinine 0.95 0.60-1.30 MG/DL Estimat Glomerular Filtration Rate > 60 BUN/Creatinine Ratio 14 Glucose Level 128 H 70-105 MG/DL Calcium Level 8.9 8.5-10.1 MG/DL Corrected Calcium 8.7 8.5-10.1 MG/DL Magnesium Level 2.1 1.6-2.4 MG/DL Total Bilirubin 0.5 0.1-1.0 MG/DL Aspartate Amino Transf (AST/SGOT) 27 5-34 U/L Alanine Aminotransferase (ALT/SGPT) 24 0-55 U/L Alkaline Phosphatase 57 40-136 U/L Myoglobin 80.3 10.0-92.0 NG/ML Troponin I < 0.028 < 0.028 <0.028 NG/ML Total Protein 7.0 6.4-8.2 GM/DL Albumin 4.2 3.2-4.5 GM/DL Lipase 34 8-78 U/L Prothrombin Time 13.3 12.2-14.7 SEC INR Comment 1.0 0.8-1.4 Activated Partial Thromboplast Time 29 24-35 SEC D-Dimer <= 0.27 0.00-0.49 UG/ML Urine Opiates Screen NEGATIVE NEGATIVE Urine Oxycodone Screen NEGATIVE NEGATIVE Urine Methadone Screen NEGATIVE NEGATIVE Urine Propoxyphene Screen NEGATIVE NEGATIVE Urine Barbiturates Screen NEGATIVE NEGATIVE Ur Tricyclic Antidepressants Screen NEGATIVE NEGATIVE Urine Phencyclidine Screen NEGATIVE NEGATIVE Urine Amphetamines Screen POSITIVE H NEGATIVE Urine Methamphetamines Screen POSITIVE H NEGATIVE Urine Benzodiazepines Screen NEGATIVE NEGATIVE Urine Cocaine Screen NEGATIVE NEGATIVE Urine Cannabinoids Screen NEGATIVE NEGATIVE My Orders Orders - WILLA SCHULZ MD Cbc With Automated Diff (12/03/19 10:00) Magnesium (12/03/19 10:00) Chest 1 View, Ap/Pa Only (12/03/19 10:00) Ekg Tracing (12/03/19 10:00) Comprehensive Metabolic Panel (12/03/19 10:00) Myoglobin Serum (12/03/19 10:00) Protime With Inr (12/03/19 10:00) Partial Thromboplastin Time (12/03/19 10:00) O2 (12/03/19 10:00) Monitor-Rhythm Ecg Trace Only (12/03/19 10:00) Ed Iv/Invasive Line Start (12/03/19 10:00) Troponin I (12/03/19 10:00) Lipase (12/03/19 10:04) Ns Iv 1000 Ml (Sodium Chloride 0.9%) (12/03/19 10:16) Ketorolac Injection (Toradol Injection) (12/03/19 10:30) Drug Screen Stat (Urine) (12/03/19 10:37) Fibrin Degradation Products (12/03/19 10:30) Troponin I (12/03/19 11:45) Medications Given in ED Current Medications Medications Dose Ordered Sig/Shelli Route Start Time Stop Time Status Last Admin Dose Admin Ketorolac Tromethamine 15 mg ONCE ONCE IVP 12/03/19 10:30 12/03/19 10:31 DC 12/03/19 10:33 15 MG Vital Signs/I&O 12/03/19 12/03/19 12/03/19 09:52 09:52 12:25 Temp 36.5 36.6 Pulse 86 76 Resp 18 17 B/P (MAP) 111/69 (83) 110/69 (83) Pulse Ox 96 97 O2 Delivery Room Air Room Air Room Air Blood Pressure Mean: 83 Progress Progress Note : Progress Note She was given aspirin and nitroglycerin by EMS. Toradol was added along with a liter of IV fluid. Patient's pain did eventually dissipate. A repeat troponin at 2 hours was negative. This repeat troponin along with reassurance from his nonobstructive angiography in September prompted discharged to outpatient follow-up. I did address the positive methamphetamines. Patient claims he does not know how he could possibly be positive for illicit substances. Initial ECG Impression Date: Dec 03, 2019 Initial ECG Impression Time: 09:53 Initial ECG Rate: 75 Initial ECG Rhythm: Normal Sinus Initial ECG Intervals: Normal Initial ECG Impression: Normal Comment Normal sinus rhythm with no ST elevation or depression. No abnormal intervals or axis deviation. Diagnostic Imaging Diagonstic Imaging: Xray Plain Films/CT/US/NM/MRI: chest Departure Impression Primary Impression: Atypical chest pain Additional Impression: Positive urine drug screen Disposition: HOME, SELF-CARE Condition: Improved Departure-Patient Inst. Decision time for Depature: 12:14 [address]errals: [facility] (PCP) Primary Care Physician FIDE CASTRO (Family) Primary Care Physician Patient Instructions: Chest Pain That Is Not Caused by the Heart (DC) Add. Discharge Instructions: Follow-up with your primary care provider as soon as possible. If you believe heartburn could be a cause of your pain, you may try an [id number] antacid medication such as omeprazole or Pepcid (famotidine). You may use Tylenol (acetaminophen and (up to 1000 mg every 6 hours as needed for pain. Add ibuprofen up to 600 mg every 6 hours as needed for pain not controlled by Tylenol. Take ibuprofen with food or milk to avoid stomach upset. Return to care if you have worsening symptoms. Work toward quitting smoking as rapidly as possible. Seek help from your primary care provider if needed. Avoid any exposure to illicit substances such as methamphetamines. All discharge instructions reviewed with patient and/or family. Voiced understanding. WILLA SCHULZ MD Dec 03, 2019 10:26
[2019-12-03 10:27] LABS: ALANINE AMINOTRANSFERASE 24 U/L (0-55); MAGNESIUM 2.1 MG/DL (1.6-2.4)
[2019-12-03] MEDS ORDERED: KETOROLAC 30 MG/ML VIAL IVP ONE (10:30)
--- NOTE | 2019-12-03 10:30 | NUR ---
Blue top sent to lab at 1030.
[2019-12-03 10:54] LABS: AMPHETAMINE SCREEN, URINE POSITIVE (NEGATIVE); BARBITURATE SCREEN URINE NEGATIVE (NEGATIVE); BENZODIAZEPINES SCREEN URINE NEGATIVE (NEGATIVE); CANNABINOID SCREEN, URINE NEGATIVE (NEGATIVE); COCAINE SCREEN URINE NEGATIVE (NEGATIVE); METHADONE STAT NEGATIVE (NEGATIVE); METHAMPHETAMINE SCREEN URINE S POSITIVE (NEGATIVE); OPIATE SCREEN URINE NEGATIVE (NEGATIVE); OXYCODONE STAT NEGATIVE (NEGATIVE); PROPOXYPHENE STAT NEGATIVE (NEGATIVE); TRICYCLIC ANTIDEPRESSANTS SCRE NEGATIVE (NEGATIVE)
--- NOTE | 2019-12-03 10:55 | Diagnostic Imaging Report ---
INDICATION: Chest pain. FINDINGS: The lungs are clear. The heart size and pulmonary vascularity normal. No failure, effusion or pneumothorax. No change from comparison dated 10/05/2019. IMPRESSION: Stable chest. Dictated by: Dictated on workstation # [id number]
[2019-12-03 11:00] LABS: FIBRIN DEGRADATION PRODUCTS <= 0.27 UG/ML (0.00-0.49); PARTIAL THROMBOPLASTIN TIME 29 SEC (24-35); PROTHROMBIN TIME PATIENT 13.3 SEC (12.2-14.7)
[2019-12-03 12:25] VITALS: BP 110/69
== END 2019-12-03 12:26 | disposition home or self-care (01) ==
LOC: EDUNIT# 09:49 → ER 09:50
DX: R07.89 Other chest pain (principal); R82.5 Elevated urine levels of drugs, medicaments and biological substances; F17.210 Nicotine dependence, cigarettes, uncomplicated; I25.10 Atherosclerotic heart disease of native coronary artery without angina pectoris; I25.2 Old myocardial infarction; I10 Essential (primary) hypertension; Z79.82 Long term (current) use of aspirin; Z88.0 Allergy status to penicillin
CPT/HCPCS: 36415; 71045; 80053; 80306; 83690; 83735; 83874; 84484; 85025; 85379; 85610; 85730; 93041

== ENCOUNTER 2020-02-17 23:36 | Emergency (ER) | payer BC ==
[~2020-02-17] VITALS: Ht 170 cm; Wt 77.0 kg
--- NOTE | 2020-02-17 23:36 | NUR ---
Pt arrives by EMS with c/o pain to left pentecostalism and left eye with intermittent loss of vision to left eye; LWKT= 20 lpta. Pt admits to smoking Meth 3 days ago. 2336: Stroke activated 2339: Pt to CT with this nurse and Johnson Ambrose 2339: Lab responded to activation 2342: RT responded to activation 2350: Back from CT IV started and labs drawn; ECG obtained; UA obtained.
[2020-02-18 00:01] LABS: BASOPHILS # (AUTO) 0.1 10^3/uL (0.0-0.1); BASOPHILS % (AUTO) 0 % (0-10); EOSINOPHILS # (AUTO) 0.1 10^3/uL (0.0-0.3); EOSINOPHILS % (AUTO) 1 % (0-10); HEMATOCRIT 43 % (40-54); HEMOGLOBIN 14.5 g/dL (13.3-17.7); LYMPHOCYTES # (AUTO) 3.3 10^3/uL (1.0-4.0); LYMPHOCYTES % (AUTO) 26 % (12-44); MEAN CORPUSCULAR HEMOGLOBIN 31 pg (25-34); MEAN CORPUSCULAR HGB CONC 34 g/dL (32-36); MEAN CORPUSCULAR VOLUME 90 fL (80-99); MEAN PLATELET VOLUME 9.2 fL (9.0-12.2); MONOCYTES # (AUTO) 1.2 10^3/uL (0.0-1.0); MONOCYTES % (AUTO) 9 % (0-12); NEUTROPHILS # (AUTO) 8.2 10^3/uL (1.8-7.8); NEUTROPHILS % (AUTO) 64 % (42-75); PLATELET COUNT 344 10^3/uL (130-400); WHITE BLOOD COUNT 12.8 10^3/uL (4.3-11.0)
[2020-02-18 00:06] VITALS: BP 141/96
[2020-02-18] MEDS ORDERED: KETOROLAC 30 MG/ML VIAL IVP STA (00:08)
[2020-02-18 00:12] LABS: ALBUMIN 4.6 GM/DL (3.2-4.5); CHLORIDE 101 MMOL/L (98-107); SODIUM 139 MMOL/L (135-145)
[2020-02-18 00:13] LABS: CALCIUM 9.8 MG/DL (8.5-10.1)
--- NOTE | 2020-02-18 00:13 | ED Neurological Problem ---
General Chief Complaint: Neuro-Stroke Like Symptoms Stated Complaint: HEADACHE Nursing Triage Note: Pt here with sudden onset SPEAR to left episcopal and decreased vision to left eye. Onset 20 minutes [employer]. Nursing Sepsis Screen: No Definite Risk Source: patient Exam Limitations: no limitations History of Present Illness Date Seen by Provider: Feb 17, 2020 Time Seen by Provider: 23:41 Initial Comments Here by EMS with report of acute onset of left-sided headache while doing laundry tonight. States that he lost vision to the left eye. Onset 20 minutes prior to arrival. He called EMS. He is walking and talking without difficulty. Admits that he's been out of his blood pressure medicine (lisinopril 10 mg daily) since Tuesday. He is called and that prescription but was unable to pick it up. States that he thinks he needs to get his vision checked his face to do that every 6 months but hasn't. Admits to using methamphetamine 3 days ago but states that he does not use very often anymore. Denies recent injury or illness. Had similar event a few years ago that resolved. Timing/Duration: 1/2 hour Severity: moderate Associated Symptoms: No confusion, No fever/chills, No loss of consciousness, No nausea/vomiting, No slurred speech, No trouble walking; vision changes; No weakness Allergies and Home Medications Allergies Coded Allergies: Penicillins (Verified Allergy, Unknown, Hives, 10/05/19) Home Medications Clindamycin HCl 150 Mg Capsule, 450 MG PO TID Prescribed by: TANNA REARDON on 07/03/19 1036 Lisinopril 10 Mg Tablet, 10 MG PO DAILY, (Reported) Patient Home Medication List Home Medication List Reviewed: Yes Review of Systems Review of Systems Constitutional: see HPI; No chills, No fever Eyes: Blurred Vision, Pain, Photophobia Ears, Nose, Mouth, Throat: denies ear pain, denies throat pain Respiratory: No cough, No short of breath Cardiovascular: No chest pain, No edema Gastrointestinal: No abdominal pain, No nausea, No vomiting Genitourinary: no symptoms reported Psychiatric/Neurological: Headache; Denies Weakness All Other Systems Reviewed Negative Unless Noted: Yes Past Wvcqiom-Ynkdif-Irzegv Hx Past Med/Social Hx: Reviewed Nursing Past Med/Soc Hx Patient Social History Alcohol Use: Occasionally Uses Number of Drinks Today: AA Alcohol Beverage of Choice: Beer Recreational Drug Use: Yes Drug of Choice: THC; Methamphetamines Smoking Status: Current Everyday Smoker Type Used: Cigarettes 2nd Hand Smoke Exposure: Yes Recent Foreign Travel: No Contact w/Someone Who Travel: No Recent Infectious Disease Expo: No Recent Hopitalizations: No Immunizations Up To Date Tetanus Booster (TDap): Unknown PED Vaccines UTD: Yes Seasonal Allergies Seasonal Allergies: No Past Medical History Surgeries: Yes (LEFT ORCHIECTOMY; LEFT KNEE SCOPE) Cardiac, Orthopedic, Testicular Respiratory: Yes Asthma, Chronic Bronchitis, COPD Cardiac: Yes Heart Attack, Hypertension Neurological: No Reproductive Disorders: Yes (LEFT ORCHIECTOMY FOR BENIGN TUMOR, PER PT) Genitourinary: Yes (LEFT ORCHIECTOMY) Gastrointestinal: No Musculoskeletal: Yes (LEFT KNEE SCOPE) Endocrine: No HEENT: No Cancer: No Psychosocial: No Integumentary: No Blood Disorders: No Family Medical History Reviewed Nursing Family Hx No Pertinent Family Hx Physical Exam Vital Signs Vital Signs - First Documented 02/17/20 23:57 Temp 36.7 Pulse 99 Resp 20 B/P (MAP) 120/102 (108) Pulse Ox 98 O2 Delivery Room Air Capillary Refill : Less Than 3 Seconds Height, Weight, BMI Height: 5'7.00" Weight: 180lbs. oz. 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, no motor/sensory deficits, alert, normal mood/affect, oriented x 3 Crainal Nerves: normal hearing, normal speech, PERRL Coordination/Gait: normal finger to nose, normal gait Motor/Sensory: no motor deficit, no sensory deficit, no pronator drift Stroke NIH Stroke Scale Assessment Level of Consciousness: 0=Alert (0), Level of Consciousness-Questions: 0=Answers both month/age (0), LOC Commands: 0=Performs both tasks (0), Visual Cruz: 0=No visual loss (0), Facial Movement (Facial Paresis): 0=Normal symmetrical mnt (0), Motor Function-Arms Right: 0=No drift (0), Motor Function-Arms Left: 0=No drift (0), Motor Function-Legs Right: 0=No drift (0), Motor Function-Legs Left: 0=No drift (0), Limb Ataxia: 0=Absent (0), Sensory: 0=Normal:no loss (0), Best Language: 0=No aphasia (0), Dysarthria: 0=Normal (0), Extinction & Inattention: 0=No abnormality (0), Total: Progress/Results/Core Measures Results/Orders Lab Results Laboratory Tests Test 02/17/20 23:54 02/17/20 23:58 Range/Units White Blood Count 12.8 H 4.3-11.0 10^3/uL Red Blood Count 4.75 4.30-5.52 10^6/uL Hemoglobin 14.5 13.3-17.7 g/dL Hematocrit 43 40-54 % Mean Corpuscular Volume 90 80-99 fL Mean Corpuscular Hemoglobin 31 25-34 pg Mean Corpuscular Hemoglobin Concent 34 32-36 g/dL Red Cell Distribution Width 12.1 10.0-14.5 % Platelet Count 344 130-400 10^3/uL Mean Platelet Volume 9.2 9.0-12.2 fL Immature Granulocyte % (Auto) 0 % Neutrophils (%) (Auto) 64 42-75 % Lymphocytes (%) (Auto) 26 12-44 % Monocytes (%) (Auto) 9 0-12 % Eosinophils (%) (Auto) 1 0-10 % Basophils (%) (Auto) 0 0-10 % Neutrophils # (Auto) 8.2 H 1.8-7.8 10^3/uL Lymphocytes # (Auto) 3.3 1.0-4.0 10^3/uL Monocytes # (Auto) 1.2 H 0.0-1.0 10^3/uL Eosinophils # (Auto) 0.1 0.0-0.3 10^3/uL Basophils # (Auto) 0.1 0.0-0.1 10^3/uL Immature Granulocyte # (Auto) 0.0 0.0-0.1 10^3/uL Prothrombin Time 13.7 12.2-14.7 SEC INR Comment 1.0 0.8-1.4 Activated Partial Thromboplast Time 30 24-35 SEC D-Dimer < 0.27 0.00-0.49 UG/ML Sodium Level 139 135-145 MMOL/L Potassium Level 4.0 3.6-5.0 MMOL/L Chloride Level 101 98-107 MMOL/L Carbon Dioxide Level 24 21-32 MMOL/L Anion Gap 14 5-14 MMOL/L Blood Urea Nitrogen 15 7-18 MG/DL Creatinine 1.07 0.60-1.30 MG/DL Estimat Glomerular Filtration Rate > 60 BUN/Creatinine Ratio 14 Glucose Level 128 H 70-105 MG/DL Calcium Level 9.8 8.5-10.1 MG/DL Corrected Calcium 8.5-10.1 MG/DL Total Bilirubin 0.6 0.1-1.0 MG/DL Aspartate Amino Transf (AST/SGOT) 26 5-34 U/L Alanine Aminotransferase (ALT/SGPT) 29 0-55 U/L Alkaline Phosphatase 69 40-136 U/L Troponin I < 0.028 <0.028 NG/ML Total Protein 7.5 6.4-8.2 GM/DL Albumin 4.6 H 3.2-4.5 GM/DL Urine Color YELLOW Urine Clarity CLEAR Urine pH 5.5 5-9 Urine Specific Sherman >=1.030 1.016-1.022 Urine Protein NEGATIVE NEGATIVE Urine Glucose (UA) NEGATIVE NEGATIVE Urine Ketones 1+ H NEGATIVE Urine Nitrite NEGATIVE NEGATIVE Urine Bilirubin NEGATIVE NEGATIVE Urine Urobilinogen 0.2 < = 1.0 MG/DL Urine Leukocyte Esterase NEGATIVE NEGATIVE Urine RBC (Auto) 1+ H NEGATIVE Urine RBC 10-25 H /HPF Urine WBC NONE /HPF Urine Squamous Epithelial Cells 2-5 /HPF Urine Crystals NONE /LPF Urine Bacteria NEGATIVE /HPF Urine Casts NONE /LPF Urine Mucus LARGE H /LPF Urine Culture Indicated NO Glucometer 123 H 70-110 MG/DL Urine Opiates Screen NEGATIVE NEGATIVE Urine Oxycodone Screen NEGATIVE NEGATIVE Urine Methadone Screen NEGATIVE NEGATIVE Urine Propoxyphene Screen NEGATIVE NEGATIVE Urine Barbiturates Screen NEGATIVE NEGATIVE Ur Tricyclic Antidepressants Screen NEGATIVE NEGATIVE Urine Phencyclidine Screen NEGATIVE NEGATIVE Urine Amphetamines Screen POSITIVE H NEGATIVE Urine Methamphetamines Screen POSITIVE H NEGATIVE Urine Benzodiazepines Screen NEGATIVE NEGATIVE Urine Cocaine Screen NEGATIVE NEGATIVE Urine Cannabinoids Screen NEGATIVE NEGATIVE My Orders Orders - AYAKA SHAVER MD Cbc With Automated Diff (02/17/20 23:39) Protime With Inr (02/17/20 23:39) Partial Thromboplastin Time (02/17/20:39) Comprehensive Metabolic Panel (02/17/20 23:39) Fibrin Degradation Products (02/17/20:39) Troponin I (02/17/20 23:39) Ua Culture If Indicated (02/17/20:39) Chest 1 View, Ap/Pa Only (02/17/20:39) Ekg Tracing (02/17/20:39) Nothing By Mouth (02/18/20 Breakfast) Accucheck Stat ONCE (02/17/20:39) Ed Iv/Invasive Line Start (02/17/20:39) Ed Iv/Invasive Line Start (02/17/20:39) Vital Signs Stroke Patient Q15M (02/17/20 23:39) Ct Head Wo-R/O Stroke (02/17/20 23:39) O2 (02/17/20:39) Intake & Output 06,14,22 (02/17/20 23:39) Monitor-Rhythm Ecg Trace Only (02/17/20 23:39) Dysphagia Screening Tool (02/17/20 23:39) Lipid Panel (02/18/20 06:00) Lisinopril Tablet (Zestril Tablet) (02/18/20 00:15) Ketorolac Injection (Toradol Injection) (02/18/20 00:08) Drug Screen Stat (Urine) (02/18/20 00:30) Tetracaine 0.5% Ophth Sapna Sdv (Tetracai (02/18/20 01:30) Fluorescein Strips (Mhmfd-[id number]-Tahspt) (02/18/20 01:30) Medications Given in ED Current Medications Medications Dose Ordered Sig/Shelli Route Start Time Stop Time Status Last Admin Dose Admin Fluorescein Sodium 1 mg ONCE ONCE OU 02/18/20 01:30 02/18/20 01:31 DC 02/18/20 01:26 1 MG Lisinopril 10 mg ONCE ONCE PO 02/18/20 00:15 02/18/20 00:16 DC 02/18/20 00:13 10 MG Tetracaine HCl 4 ml ONCE ONCE OU 02/18/20 01:30 02/18/20 01:31 DC 02/18/20 01:26 4 ML Vital Signs/I&O 02/17/20 02/18/20 23:57 00:06 Temp 36.7 Pulse 99 98 Resp 20 20 B/P (MAP) 120/102 (108) 141/96 Pulse Ox 98 98 O2 Delivery Room Air Blood Pressure Mean: 108 FSBG Bedside Testing Finger Stick Blood Glucose: 123 Progress Progress Note : Progress Note Seen and evaluated. Stroke protocol initiated due to acute onset headache and vision changes. Patient did receive rapid his initial assessment and then went straight to CT. No acute findings on CT exam. 0008: Still negative on stroke screen. Does complain of headache. Toradol 30 mg IV. Lisinopril 10 mg by mouth ordered. Patient not candidate for TPA as he is a 0 on stroke screen. Monitor patient. 0137: Evaluation complete and no significant abnormalities. Patient did mention that he thought that he may have a foreign body in the left eye. I did do inspection after tetracaine topical and stained and no foreign bodies noted. Ocular pressure tested and found to be 16. Overall his headache is improved and now he thinks maybe it's just that his prescription glasses or bad as he has not had been glasses for 10 years. He is currently trying to get in with a knife doctor and will continue that process. Discharged home with return precautions. Patient verbalize understanding of instructions and agreement with plan. Diagnostic Imaging Diagonstic Imaging: Xray Plain Films/CT/US/NM/MRI: chest Comments No acute findings Diagonstic Imaging: CT Plain Films/CT/US/NM/MRI: head Comments No acute intracranial hemorrhage. No acute findings per radiologist. Reviewed: Reviewed Night Hawk Study, Reviewed by Me, Discussed w/Radiologist Departure Impression Primary Impression: Headache Qualified Codes: R51 - Headache Additional Impression: Ocular pain, left eye Disposition: HOME, SELF-CARE Condition: Stable Departure-Patient Inst. Decision time for Depature: 01:39 Referrals: [facility] (PCP) Primary Care Physician FIDE CASTRO (Family) Primary Care Physician Patient Instructions: Headache, Adult (DC), Eyestrain Add. Discharge Instructions: All discharge instructions reviewed with patient and/or family. Voiced understanding. Is very important that he follow-up with an eye doctor as soon as possible. Call tomorrow for appointment. Follow-up with your doctor for recheck and further evaluation. Return for worse pain, fever, vomiting, weakness, breathing problems or other concerns as needed. You need to pickle cutter your blood pressure medicine today and continue taking this as prescribed. You may take ibuprofen and/or Tylenol as needed for pain per package directions. AYAKA SHAVER MD Feb 18, 2020 00:13
[2020-02-18 00:14] LABS: GLUCOSE 128 MG/DL (70-105)
[2020-02-18 00:15] LABS: TOTAL PROTEIN 7.5 GM/DL (6.4-8.2)
[2020-02-18] MEDS ORDERED: lisINopril 10 MG (PRINIVIL) TABLET PO ONE (00:15)
[2020-02-18 00:16] LABS: CARBON DIOXIDE 24 MMOL/L (21-32)
[2020-02-18 00:17] LABS: BILIRUBIN,URINE NEGATIVE (NEGATIVE); CLARITY,URINE CLEAR; COLOR,URINE YELLOW; GLUCOSE, URINE (UA) NEGATIVE (NEGATIVE); KETONES,URINE 1+ (NEGATIVE); LEUKOCYTE ESTERASE ,URINE NEGATIVE (NEGATIVE); NITRITE,URINE NEGATIVE (NEGATIVE); PH,URINE 5.5 (5-9); PROTEIN,URINE NEGATIVE (NEGATIVE)
[2020-02-18 00:17] LABS: BILIRUBIN,TOTAL 0.6 MG/DL (0.1-1.0)
[2020-02-18 00:18] LABS: ALKALINE PHOSPHATASE 69 U/L (40-136); CREATININE SERUM 1.07 MG/DL (0.60-1.30); GFR ESTIMATED > 60
[2020-02-18 00:19] LABS: BUN/CREATININE RATIO 14
[2020-02-18 00:21] LABS: ALANINE AMINOTRANSFERASE 29 U/L (0-55)
[2020-02-18 00:26] LABS: BACTERIA,URINE NEGATIVE /HPF
[2020-02-18 00:29] LABS: FIBRIN DEGRADATION PRODUCTS < 0.27 UG/ML (0.00-0.49); PARTIAL THROMBOPLASTIN TIME 30 SEC (24-35); PROTHROMBIN TIME PATIENT 13.7 SEC (12.2-14.7)
[2020-02-18 00:56] LABS: AMPHETAMINE SCREEN, URINE POSITIVE (NEGATIVE); BARBITURATE SCREEN URINE NEGATIVE (NEGATIVE); BENZODIAZEPINES SCREEN URINE NEGATIVE (NEGATIVE); CANNABINOID SCREEN, URINE NEGATIVE (NEGATIVE); COCAINE SCREEN URINE NEGATIVE (NEGATIVE); METHADONE STAT NEGATIVE (NEGATIVE); METHAMPHETAMINE SCREEN URINE S POSITIVE (NEGATIVE); OPIATE SCREEN URINE NEGATIVE (NEGATIVE); OXYCODONE STAT NEGATIVE (NEGATIVE); PROPOXYPHENE STAT NEGATIVE (NEGATIVE); TRICYCLIC ANTIDEPRESSANTS SCRE NEGATIVE (NEGATIVE)
[2020-02-18] MEDS ORDERED: TETRACAINE 0.5% OPHTH SOLN 4 ML BTL (SINGLE DOSE ONLY) OU ONE (01:30)
[2020-02-18] MEDS ORDERED: FLUORESCEIN (FLUOR-I-STRIPS) 1 MG STRP OU ONE (01:30)
--- NOTE | 2020-02-18 01:50 | NUR ---
Discussed discharge education with patient. Pt verbalized an understanding. Pt continues to show no neuro deficits and reports that his left eye feels better but still has some pain and blurry vision. Pt reports he will f/u as directed.
[2020-02-18 02:05] VITALS: BP 125/80
--- NOTE | 2020-02-18 06:17 | Diagnostic Imaging Report ---
PROCEDURE: CT head wo r/o stroke. TECHNIQUE: Multiple contiguous axial images were obtained through the brain without the use of intravenous contrast. Auto Exposure Controls were utilized during the CT exam to meet ALARA standards for radiation dose reduction. INDICATION: Headache. COMPARISON: 09/27/2019. FINDINGS: Ventricles are normal in size, shape and position. There is no midline shift or mass effect. There is no hemorrhage or evidence of acute ischemia. No mass or extra-axial fluid collection is seen. The bony calvarium, paranasal sinuses and mastoids are clear. IMPRESSION: No acute intracranial abnormality. Agree with preliminary report. Dictated by: Dictated on workstation # [id number]
--- NOTE | 2020-02-18 07:02 | Diagnostic Imaging Report ---
INDICATION: Headache, stroke COMPARISON: 12/03/2019 FINDINGS: Single view of the chest demonstrates clear lungs bilaterally. The heart is normal. There is no pneumothorax. The osseous structures are normal. IMPRESSION: Negative chest Dictated by: Dictated on workstation # [id number]
== END 2020-02-18 02:06 | disposition home or self-care (01) ==
LOC: EDUNIT# 23:36 → ER 23:38
DX: R51.9 Headache, unspecified (principal); H57.12 Ocular pain, left eye; I10 Essential (primary) hypertension; I25.2 Old myocardial infarction; F17.210 Nicotine dependence, cigarettes, uncomplicated; Z88.0 Allergy status to penicillin
CPT/HCPCS: 36415; 70450; 71045; 80053; 80306; 81000; 82962; 84484; 85025; 85379; 85610; 85730; 93005; 93041

== ENCOUNTER 2020-10-20 22:49 | Emergency (ER) | payer BC, OTHER ==
[~2020-10-20] VITALS: Ht 170.2 cm; Wt 72.6 kg
[~2020-10-20 22:49] MED LIST changes: -CLIN150C17 PO; +CLIN150C18 PO; -LISI10TA2 PO; +LISI10TA25 PO
--- NOTE | 2020-10-21 00:22 | ED Integumentary General ---
General Chief Complaint: Skin/Wound Problems Stated Complaint: SPIDER BITE - BILAT LEGS Nursing Triage Note: PT AMBULATE TO TRIAGE WITH C/O SORES TO BOTH LEGS. 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 PT ALSO STATES THAT HE HAS A LOT OF SPIDERS AT HOME AND GETS BITTEN OFTEN. PT REPORTS TAKING ABX GIVEN FOR A PREVIOUS SPIDER BITE. Source: patient Exam Limitations: no limitations History of Present Illness Date Seen by Provider: Oct 21, 2020 Time Seen by Provider: 00:05 Initial Comments Patient to the ER by private conveyance with chief complaint of sores on his right forearm and bilateral lower legs. He states he has a lot of spiders in his house and is frequently bitten. He did a course of antibiotics from [facility] and they have not completely healed. Has been treating it with triple antibiotic ointment and keep them covered when he is outside. Allergies and Home Medications Allergies Coded Allergies: Penicillins (Verified Allergy, Unknown, Hives, 10/05/19) Home Medications Clindamycin HCl 150 Mg Capsule, 450 MG PO TID Prescribed by: TANNA REARDON on 07/03/19 1036 Clindamycin HCl 150 Mg Capsule, 450 MG PO TID Prescribed by: TANNA REARDON on 10/21/20 0026 Lisinopril 10 Mg Tablet, 10 MG PO DAILY, (Reported) Patient Home Medication List Home Medication List Reviewed: Yes Review of Systems Review of Systems Constitutional: No chills, No diaphoresis EENTM: No ear discharge, No ear pain Respiratory: No cough, No short of breath Cardiovascular: No chest pain, No palpitations Gastrointestinal: No abdominal pain, No nausea, No vomiting Genitourinary: No discharge, No dysuria Musculoskeletal: No back pain, No joint pain Psychiatric/Neurological: Denies Anxiety, Denies Depressed Past Nskwrsv-Amvgnn-Pwfblt Hx Patient Social History Tobacco Use?: Yes Tobacco type used: Cigarettes Substance use?: Yes Substance type: Marijuana Substance frequency: Couple times a week Alcohol Use?: Yes Alcohol Frequency: Couple times a week Immunizations Up To Date Tetanus Booster (TDap): Unknown PED Vaccines UTD: Yes Seasonal Allergies Seasonal Allergies: No Past Medical History Surgeries: Yes (LEFT ORCHIECTOMY; LEFT KNEE SCOPE) Cardiac, Orthopedic, Testicular Respiratory: Yes Asthma, Chronic Bronchitis, COPD Cardiac: Yes Heart Attack, Hypertension Neurological: No Reproductive Disorders: Yes (LEFT ORCHIECTOMY FOR BENIGN TUMOR, PER PT) Genitourinary: Yes (LEFT ORCHIECTOMY) Gastrointestinal: No Musculoskeletal: Yes (LEFT KNEE SCOPE) Endocrine: No HEENT: No Cancer: No Psychosocial: No Integumentary: No Blood Disorders: No Family Medical History No Pertinent Family Hx Physical Exam Vital Signs Vital Signs - First Documented 10/20/20 10/21/20 22:54 00:35 Temp 37.0 Pulse 104 Resp 20 B/P (MAP) 125/72 (89) Pulse Ox 98 O2 Delivery Room Air Capillary Refill : Less Than 3 Seconds General Appearance: WD/WN, no apparent distress HEENT: PERRL/EOMI, pharynx normal Neck: full range of motion, normal inspection Cardiovascular: normal peripheral pulses, regular rate, rhythm Respiratory: no respiratory distress, no accessory muscle use Gastrointestinal: normal bowel sounds, non tender Extremities: normal inspection, normal capillary refill Neurologic/Psychiatric: alert, normal mood/affect, oriented x 3 Skin: normal color, warm/dry Progress/Results/Core Measures Results/Orders Vital Signs/I&O 10/20/20 10/21/20 22:54 00:35 Temp 37.0 36.8 Pulse 104 96 Resp 20 17 B/P (MAP) 125/72 (89) 125/72 (89) Pulse Ox 98 O2 Delivery Room Air Room Air Blood Pressure Mean: 89 Progress Progress Note : Time: 02:27 Progress Note Clindamycin and probiotics Departure Impression Primary Impression: Abscess Disposition: 01 HOME, SELF-CARE Condition: Stable Departure-Patient Inst. Decision time for Depature: 00:24 Referrals: [facility] (PCP/Family) Primary Care Physician Patient Instructions: Martínez (DC) Add. Discharge Instructions: Keep the wound clean with regular soap and water. Dressed them with bandages if you are going out in a farhad or dirty environment. Do not use hydrogen peroxide, alcohol, chlorhexidine or iodine as this will slow wound healing. Vaseline or triple antibiotic ointment is an acceptable covering. Clindamycin 3 capsules three times a day for the next 7 days. Follow-up with primary care in 1 to 2 weeks for reassessment. 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 All discharge instructions reviewed with patient and/or family. Voiced understanding. Scripts Clindamycin HCl (Clindamycin HCl) 150 Mg Capsule 450 MG PO TID for 7 Days, #63 CAP 0 Refills Prov: TANNA REARDON 10/21/20 TANNA REARDON Oct 21, 2020 00:22
[2020-10-21] MEDS ORDERED: CLIN150C18 PO (00:26)
[2020-10-21 00:35] VITALS: BP 125/72
== END 2020-10-21 00:35 | disposition home or self-care (01) ==
LOC: EDUNIT# 22:49 → ER 22:50
DX: L02.413 Cutaneous abscess of right upper limb (principal); L02.416 Cutaneous abscess of left lower limb; L02.415 Cutaneous abscess of right lower limb; J44.9 Chronic obstructive pulmonary disease, unspecified; I25.2 Old myocardial infarction; I10 Essential (primary) hypertension; Z88.0 Allergy status to penicillin; Z79.899 Other long term (current) drug therapy
CPT/HCPCS: 99282

== ENCOUNTER 2020-11-25 17:51 | Emergency (ER) | payer OTHER ==
[2020-11-25] MEDS ORDERED: NS IV 1000 ML 1,000 ML IV STA (18:05)
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
[2020-11-25 18:20] LABS: BASOPHILS # (AUTO) 0.1 10^3/uL (0.0-0.1); BASOPHILS % (AUTO) 1 % (0-10); EOSINOPHILS # (AUTO) 0.1 10^3/uL (0.0-0.3); EOSINOPHILS % (AUTO) 1 % (0-10); HEMATOCRIT 44 % (40-54); HEMOGLOBIN 15.1 G/DL (13.3-17.7); LYMPHOCYTES # (AUTO) 3.3 X 10^3 (1.0-4.0); LYMPHOCYTES % (AUTO) 30 % (12-44); MEAN CORPUSCULAR HEMOGLOBIN 31 PG (25-34); MEAN CORPUSCULAR HGB CONC 34 G/DL (32-36); MEAN CORPUSCULAR VOLUME 89 FL (80-99); MEAN PLATELET VOLUME 9.1 FL (7.4-10.4); MONOCYTES # (AUTO) 1.1 X 10^3 (0.0-1.0); MONOCYTES % (AUTO) 10 % (0-12); NEUTROPHILS # (AUTO) 6.5 X 10^3 (1.8-7.8); NEUTROPHILS % (AUTO) 58 % (42-75); PLATELET COUNT 439 10^3/uL (130-400); WHITE BLOOD COUNT 11.1 10^3/uL (4.3-11.0)
[2020-11-25 18:23] LABS: CLARITY,URINE CLEAR; COLOR,URINE YELLOW; PH,URINE 6.5 (5-9)
[2020-11-25 18:24] LABS: BACTERIA,URINE NEGATIVE /HPF; BILIRUBIN,URINE NEGATIVE (NEGATIVE); GLUCOSE, URINE (UA) NEGATIVE (NEGATIVE); KETONES,URINE NEGATIVE (NEGATIVE); LEUKOCYTE ESTERASE ,URINE NEGATIVE (NEGATIVE); NITRITE,URINE NEGATIVE (NEGATIVE); PROTEIN,URINE TRACE (NEGATIVE); SQUAMOUS EPITHELIAL CELL,UR 0-2 /HPF; WBC,URINE 0-2 /HPF
[2020-11-25 18:25] LABS: PROTHROMBIN TIME PATIENT 13.2 SEC (12.2-14.7)
[2020-11-25 18:29] LABS: AMPHETAMINE SCREEN, URINE POSITIVE (NEGATIVE); BARBITURATE SCREEN URINE NEGATIVE (NEGATIVE); BENZODIAZEPINES SCREEN URINE NEGATIVE (NEGATIVE); CANNABINOID SCREEN, URINE POSITIVE (NEGATIVE); COCAINE SCREEN URINE NEGATIVE (NEGATIVE); METHADONE STAT NEGATIVE (NEGATIVE); METHAMPHETAMINE SCREEN URINE S POSITIVE (NEGATIVE); OPIATE SCREEN URINE NEGATIVE (NEGATIVE); OXYCODONE STAT NEGATIVE (NEGATIVE); PROPOXYPHENE STAT NEGATIVE (NEGATIVE); TRICYCLIC ANTIDEPRESSANTS SCRE NEGATIVE (NEGATIVE)
--- NOTE | 2020-11-25 18:37 | Diagnostic Imaging Report ---
INDICATION: Chest pain. TIME OF EXAM: 6:09 PM Correlation is made with prior chest of 02/17/2020. The heart size is normal. The pulmonary vascularity is unremarkable. The lungs are clear. No infiltrate, effusion or pneumothorax is detected. IMPRESSION: No acute cardiopulmonary process is detected. Dictated by: Dictated on workstation # [id number]
[2020-11-25 18:42] LABS: BUN/CREATININE RATIO 12; CALCIUM 10.3 MG/DL (8.5-10.1); CARBON DIOXIDE 23 MMOL/L (21-32); CHLORIDE 102 MMOL/L (98-107); CREATININE SERUM 1.41 MG/DL (0.60-1.30); GFR ESTIMATED 56; GLUCOSE 127 MG/DL (70-105); POTASSIUM 4.2 MMOL/L (3.6-5.0); SODIUM 141 MMOL/L (135-145)
[2020-11-25 18:43] LABS: ALANINE AMINOTRANSFERASE 24 U/L (0-55); ALKALINE PHOSPHATASE 84 U/L (40-136); BILIRUBIN,TOTAL 0.5 MG/DL (0.1-1.0); LIPASE 32 U/L (8-78)
[2020-11-25 19:17] LABS: MAGNESIUM 2.2 MG/DL (1.6-2.4)
[2020-11-25] MEDS ORDERED: KETOROLAC 30 MG/ML VIAL IVP STA (20:49)
[2020-11-25] MEDS ORDERED: LORazepam INJ 2 MG/ML (ATIVAN) VIAL IVP STA (20:49)
[2020-11-25 21:11] VITALS: BP 121/96
== END 2020-11-25 21:12 | disposition home or self-care (01) ==
LOC: ER FS 17:51 → EDUNIT# 17:51 → ER FS 21:12
DX: R07.9 Chest pain, unspecified (principal); R82.5 Elevated urine levels of drugs, medicaments and biological substances; E86.0 Dehydration; J44.9 Chronic obstructive pulmonary disease, unspecified; I10 Essential (primary) hypertension; I25.2 Old myocardial infarction; Z79.899 Other long term (current) drug therapy
CPT/HCPCS: 36415; 71045; 80053; 80306; 81000; 83690; 83735; 83880; 84484; 85025; 85610; 85730; 93005; 93041

== ENCOUNTER 2020-12-29 13:46 | Emergency (ER) | payer OTHER ==
[~2020-12-29] VITALS: Ht 170 cm; Wt 74.8 kg
[2020-12-29] MEDS ORDERED: KETOROLAC 60 MG/2 ML VIAL IM ONE (14:45)
[2020-12-29] MEDS ORDERED: cefTRIAXone 1,000 MG VIAL IM ONE (14:45)
[2020-12-29] MEDS ORDERED: LIDOCAINE 1% INJ 20 ML 20 ML VIAL INJ ONE (14:45)
--- NOTE | 2020-12-29 15:05 | ED Upper Extremity ---
General Chief Complaint: Upper Extremity Stated Complaint: R HAND BURNED/SWELLING Nursing Triage Note: Pt c/o pain to right index finger, states he burnt it welding on tuesday. Source: patient Exam Limitations: other (very drwosy) (JUVENAL MOSLEY) History of Present Illness Date Seen by Provider: Dec 29, 2020 Time Seen by Provider: 14:20 Initial Comments CC: Right hand Bund 40 yo male presents with swelling and erythema of the 4th phalange after burning it while working on a muffler Tuesday. Patient noticed swelling and erythema Tuesday and decided to drain it with a needle that he had "sterilized'" by placing it in alcohol. Patient complains of throbbing pain that he rates as a 7.5 out of 10. Reports having some numbness and tingling as well. Patient has tried ibuprofen with little relief Onset: other (2 days ago) Pain/Injury Location: right 4th finger Method of Injury: burn Associated Symptoms: Numbness and tingling fo the affected finger (JUVENAL MOSLEY) Allergies and Home Medications Allergies Coded Allergies: Penicillins (Verified Allergy, Unknown, Hives, 10/05/19) Patient Home Medication List Home Medication List Reviewed: Yes (TANNA REARDON) Clindamycin HCl (Clindamycin HCl) 150 Mg Capsule, 450 MG PO TID Prescribed by: ATNNA REARDON on 07/03/19 1036 Clindamycin HCl (Clindamycin HCl) 150 Mg Capsule, 450 MG PO TID Prescribed by: TANNA REARDON on 10/21/20 0026 Hydrocodone/Acetaminophen (Hydrocodone-Acetamin 5-325 mg) 1 Each Tablet, 1 TAB PO Q6H PRN for PAIN-MODERATE (5-7) Prescribed by: TANNA REARDON on 12/29/20 1539 Lisinopril (Lisinopril) 10 Mg Tablet, 10 MG PO DAILY, (Reported) Entered as Reported by: LUIS ENRIQUE BLAKELY on 10/05/19 1430 [place]-3/Dha/Epa/Fish Oil (Fish Oil 1,000 mg Softgel) 1 Each Capsule, 1 EACH PO, (Reported) Entered as Reported by: LUIS ENRIQUE BLAKELY on 10/05/19 1427 Paroxetine HCl (Paroxetine HCl) 20 Mg Tablet, 20 MG PO, (Reported) Entered as Reported by: LUIS ENRIQUE BLAKELY on 10/05/19 1429 Sulfamethoxazole/Trimethoprim (Bactrim Ds Tablet) 1 Each Tablet, 1 EACH PO BID Prescribed by: TANNA REARDON on 12/29/20 1538 Review of Systems Constitutional: No chills, No fever Respiratory: No cough, No short of breath Skin: change in color (of right 4th phalange), other (erythema of right 4th phalange) (JUVENAL MOSLEY) All Other Systems Reviewed Negative Unless Noted: Yes (TANNA REARDON) Past Jhbsghx-Vbzjpa-Adnkvx Hx Patient Social History Tobacco Use?: Yes Tobacco type used: Cigarettes Smoking Status: Current Everyday Smoker Substance use?: No Pt feels they are or have been: No (JUVENAL MOSLEY) Tobacco Use?: No Use of E-Cig and/or Vaping dev: No (TANNA REARDON) Immunizations Up To Date Tetanus Booster (TDap): Unknown PED Vaccines UTD: Yes (JUVENAL MOSLEY) Seasonal Allergies Seasonal Allergies: No (JUVENAL MOSLEY) Past Medical History Surgery/Hospitalization HX: Clear Heart Cath September [address] Haji Surgeries: Yes (LEFT ORCHIECTOMY; LEFT KNEE SCOPE) Cardiac, Orthopedic, Testicular Respiratory: Yes Asthma, Chronic Bronchitis, COPD Cardiac: Yes Heart Attack, Hypertension Neurological: No Reproductive Disorders: Yes (LEFT ORCHIECTOMY FOR BENIGN TUMOR, PER PT) Genitourinary: Yes (LEFT ORCHIECTOMY) Gastrointestinal: No Musculoskeletal: Yes (LEFT KNEE SCOPE) Endocrine: No HEENT: No Cancer: No Psychosocial: No Integumentary: No Blood Disorders: No (JUVENAL MOSLEY) Family Medical History No Pertinent Family Hx (JUVENAL MOSLEY) Physical Exam Vital Signs Vital Signs - First Documented 12/29/20 13:53 Temp 36.7 Pulse 93 Resp 17 B/P (MAP) 143/87 (105) Pulse Ox 100 O2 Delivery Room Air (TANNA REARDON) Vital Signs Capillary Refill : Less Than 3 Seconds (JUVENAL MOSLEY) Height, Weight, BMI Height: 5'7.00" Weight: 180lbs. oz. 81.143929ms; 25.00 BMI Method:Stated General Appearance: WD/WN, no apparent distress, other Neck: non-tender Cardiovascular: regular rate, rhythm, no edema, no murmur Respiratory: chest non-tender, lungs clear, normal breath sounds, no respiratory distress, no accessory muscle use Gastrointestinal: non tender, soft Hand: normal inspection (Of the left hand), non-tender (Left hand), Right (Right 4th phalange with erythema and swelling, Pale tissue with small puncture wounds consistent with needle decompression of the affected tissue), asymmetry, limited ROM (9f 4th phalange due to pain), swelling Neurologic/Psychiatric: alert, oriented x 3 Skin: normal color (All other areas WNL), warm/dry (All other areas WNL) (JUVENAL MOSLEY) Progress/Results/Core Measures Results/Orders My Orders Orders - TANNA REARDON Ceftriaxone (Rocephin) (12/29/20 14:45) Ketorolac Injection (Toradol Injection) (12/29/20 14:45) Lidocaine 1% Inj 20 Ml (Xylocaine 1% Inj (12/29/20 14:45) (TANNA REARDON) Medications Given in ED Current Medications Medications Dose Ordered Sig/Shelli Route Start Time Stop Time Status Last Admin Dose Admin Ceftriaxone Sodium 1,000 mg ONCE ONCE IM 12/29/20 14:45 12/29/20 14:46 DC 12/29/20 15:01 1,000 MG Ketorolac Tromethamine 60 mg ONCE ONCE IM 12/29/20 14:45 12/29/20 14:46 DC 12/29/20 15:03 60 MG Lidocaine HCl 2.1 ml ONCE ONCE INJ 12/29/20 14:45 12/29/20 14:46 DC 12/29/20 15:02 2.1 ML (TANNA REARDON) Vital Signs/I&O 12/29/20 12/29/20 13:53 16:00 Temp 36.7 36.7 Pulse 93 93 Resp 17 17 B/P (MAP) 143/87 (105) 143/87 Pulse Ox 100 100 O2 Delivery Room Air Room Air (TANNA REARDON) Blood Pressure Mean: 105 Progress Progress Note : Time: 15:31 Progress Note I attest that I saw this patient alongside the medical student and agree with his documented history, physical exam and review of systems except as otherwise noted. We thoroughly cleanse the wound and offered to open it but the patient declined. It is already open and draining some purulent material. Gave him a dose of Rocephin and Toradol for his discomfort and will have him follow-up in 1 to 2 days in the ER or with his primary care doctor for reevaluation. Put him out on Bactrim. (TANNA REARDON) Departure Impression Primary Impression: Burn of finger Qualified Codes: T23.221A - Burn of second degree of single right finger (nail) except thumb, initial encounter Additional Impression: Infected wound Disposition: HOME, SELF-CARE Condition: Stable Departure-Patient Inst. Decision time for Depature: 15:36 (TANNA REARDON) Referrals: [facility] [place] (PCP/Family) Primary Care Physician Patient Instructions: Wound Infection, Skin Vizcarra (DC) Add. Discharge Instructions: Keep the wound clean with regular soap and water only. You may use triple antibiotic or Vaseline to cover the wound. Cover it with a clean dry gauze dressing daily. Change the dressing more often if it becomes soiled. Bactrim twice a day with food for the next 7 days to treat the infection. Return to the ER in the next 1 to 2 days for wound recheck or go to your primary care doctor in the next 1 to 2 days for a wound recheck. Tylenol 1000 mg every 8 hours as necessary for pain. Ibuprofen 800 mg every 8 hours as necessary for pain. Hydrocodone 1 tablet every 6 hours as necessary for severe pain. All discharge instructions reviewed with patient and/or family. Voiced understanding. Scripts Hydrocodone/Acetaminophen (Hydrocodone-Acetamin 5-325 mg) 1 Each Tablet 1 TAB PO Q6H PRN for PAIN-MODERATE (5-7), #8 TAB 0 Refills Prov: TANNA REARDON 12/29/20 Sulfamethoxazole/Trimethoprim (Bactrim Ds Tablet) 1 Each Tablet 1 EACH PO BID for 7 Days, #14 TAB 0 Refills Prov: TANNA REARDON 12/29/20 Work/School Note: Work Release Form Date Seen in the Emergency Department: Dec 29, 2020 Return to Work: Dec 30, 2020 Restrictions: Need Release from Doctor Other Restrictions Listed Below: Keep wound on right hand clean and dry until healed. JUVENAL MOSLEY Dec 29, 2020 15:05 TANNA REARDON Dec 29, 2020 15:37
[2020-12-29] MEDS ORDERED: SULF1TAB38 PO (15:38)
[2020-12-29] MEDS ORDERED: ACHD5005 PO (15:38)
[2020-12-29 16:00] VITALS: BP 143/87
== END 2020-12-29 16:00 | disposition home or self-care (01) ==
LOC: EDUNIT# 13:46 → ER 13:48
DX: T23.121A Burn of first degree of single right finger (nail) except thumb, initial encounter (principal); J44.9 Chronic obstructive pulmonary disease, unspecified; I25.2 Old myocardial infarction; I10 Essential (primary) hypertension; F17.210 Nicotine dependence, cigarettes, uncomplicated; X19.XXXA Contact with other heat and hot substances, initial encounter
CPT/HCPCS: 96372

== ENCOUNTER 2021-06-24 06:20 | Emergency (ER) | payer SELFPAY ==
[~2021-06-24] VITALS: Ht 167 cm; Wt 68.0 kg
[~2021-06-24 06:20] MED LIST changes: +ACHD5005 PO; -CLIN150C18 PO; +CLIN150C20 PO; +SULF1TAB38 PO
[2021-06-24] MEDS ORDERED: TETANUS,DIPTH,PERTUSS P/F (BOOSTRIX) 0.5 ML VIAL IM ONE (06:30)
--- NOTE | 2021-06-24 06:39 | ED Lower Extremity ---
General Chief Complaint: Laceration Stated Complaint: LEFT KNEE LAC Source: patient (EILEEN GREER MED STUDENT) History of Present Illness Date Seen by Provider: Jun 24, 2021 Time Seen by Provider: 06:30 Initial Comments Patient is a 40 year old male who presents to the ED via EMS with complaints of a left knee laceration. Patient reports he was at his [employer] constitution party overnight, this am got up and walked outside and tripped and fell landing on a hatchet and cut his left knee. He denies LOC, headache, nausea, vomiting, and dizziness. He denies pain at the site of injury although moans when the area around the laceration was palpated. Is able to move left lower extremity. Denies loss of sensation in left lower extremity. Did not take anything for the pain prior to arrival. Appears under the influence of a substance but denies use of methamphetamine or marijuana today. Onset: just prior to arrival Severity: mild Pain/Injury Location: left knee Method of Injury: fell Modifying Factors: Improves With Movement (EILEEN GREER STUDENT) Allergies and Home Medications Allergies Coded Allergies: Penicillins (Verified Allergy, Unknown, Hives, 10/05/19) Patient Home Medication List Home Medication List Reviewed: Yes (EDINSON GRAVES MD) Clindamycin HCl (Clindamycin HCl) 150 Mg Capsule, 450 MG PO TID Prescribed by: TANNA REARDON on 07/03/19 1036 Clindamycin HCl (Clindamycin HCl) 150 Mg Capsule, 450 MG PO TID Prescribed by: TANNA REARDON on 10/21/20 0026 Hydrocodone/Acetaminophen (Hydrocodone-Acetamin 5-325 mg) 1 Each Tablet, 1 TAB PO Q6H PRN for PAIN-MODERATE (5-7) Prescribed by: TANNA REARDON on 12/29/20 1539 Lisinopril (Lisinopril) 10 Mg Tablet, 10 MG PO DAILY, (Reported) Entered as Reported by: LUIS ENRIQUE BLAKELY on 10/05/19 1430 [place]-3/Dha/Epa/Fish Oil (Fish Oil 1,000 mg Softgel) 1 Each Capsule, 1 EACH PO, (Reported) Entered as Reported by: LUIS ENRIQUE BLAKELY on 10/05/19 1427 Paroxetine HCl (Paroxetine HCl) 20 Mg Tablet, 20 MG PO, (Reported) Entered as Reported by: LUIS ENRIQUE BLAKELY on 10/05/19 1429 Sulfamethoxazole/Trimethoprim (Bactrim Ds Tablet) 1 Each Tablet, 1 EACH PO BID Prescribed by: TANNA REARDON on 12/29/20 1538 Review of Systems Constitutional: No chills, No diaphoresis EENTM: No ear discharge, No hearing loss, No blurred vision, No double vision Respiratory: No cough, No dyspnea on exertion Cardiovascular: No chest pain, No edema Gastrointestinal: No abdominal pain, No nausea, No vomiting Genitourinary: No dysuria, No frequency Musculoskeletal: No back pain, No joint swelling Skin: No change in color, No change in hair/nails; lesions (scattered superficial abrasions and sores in various stages of healing over legs bilaterally) Psychiatric/Neurological: Denies Headache, Denies Numbness (EILEEN GREER [employer] STUDENT) All Other Systems Reviewed Negative Unless Noted: Yes (TOMA GREERQuidsi KEITH) Past Xzkrtps-Ivpepg-Rnukwq Hx Patient Social History Tobacco Use?: Yes Tobacco type used: Cigarettes Smoking Status: Current Everyday Smoker Smokeless Tobacco Frequency: Never a User Use of E-Cig and/or Vaping dev: No Use of E-Cig and/or Vaping [place]: Never a User Substance use?: Yes Substance type: Methamphetamine, Marijuana Substance frequency: Couple times a week Alcohol Use?: Yes Alcohol type: Beer Alcohol Frequency: Couple times a week (TOMA GREERQuidsi STUDENT) Immunizations Up To Date Tetanus Booster (TDap): Unknown PED Vaccines UTD: Yes (TOMA GREERQuidsi STUDENT) Seasonal Allergies Seasonal Allergies: No (TOMA GREERQuidsi STUDENT) Past Medical History Surgery/Hospitalization HX: Clear Heart Cath September [address] Haji Surgeries: Yes (LEFT ORCHIECTOMY; LEFT KNEE SCOPE) Cardiac, Orthopedic (Left knee surgery), Testicular Respiratory: Yes Asthma, Chronic Bronchitis, COPD Cardiac: Yes Heart Attack, Hypertension Neurological: No Reproductive Disorders: Yes (LEFT ORCHIECTOMY FOR BENIGN TUMOR, PER PT) Genitourinary: Yes (LEFT ORCHIECTOMY) Gastrointestinal: No Musculoskeletal: Yes (LEFT KNEE SCOPE) Endocrine: No HEENT: No Loss of Vision: Denies Hearing Impairment: Denies Cancer: No Psychosocial: No Integumentary: No Blood Disorders: No (EILEEN GREER [employer] STUDENT) Family Medical History No Pertinent Family Hx (EILEEN GREER [employer] STUDENT) Physical Exam Vital Signs Vital Signs - First Documented 06/24/21 06/24/21 06:20 07:19 Temp 36.8 Pulse 85 Resp 22 B/P (MAP) 133/119 (124) Pulse Ox 95 O2 Delivery Room Air (EDINSON GRAVES MD) Vital Signs Capillary Refill : (EILEEN GREER [employer] STUDENT) Height, Weight, BMI Height: 5'7.00" Weight: 180lbs. oz. 81.600073bc; 25.00 BMI Method:Stated General Appearance: no apparent distress, other (Dishelved and unkempt appearance with poor hygiene) HEENT: PERRL/EOMI, pharynx normal Neck: non-tender, full range of motion Cardiovascular: normal peripheral pulses, regular rate, rhythm, no edema Respiratory: lungs clear, normal breath sounds, no respiratory distress Gastrointestinal: normal bowel sounds, non tender, soft Back: normal inspection, no vertebral tenderness Hips: bilateral hip non-tender, bilateral hip normal range of motion, bilateral hip no evidence of injury Legs: bilateral leg non-tender, bilateral leg normal range of motion, bilateral leg no evidence of injury Knees: left knee pain (left knee laceration), left knee soft tissue tenderness Ankles: bilateral ankle non-tender, bilateral ankle normal range of motion Feet: bilateral foot non-tender, bilateral foot normal range of motion, bilateral foot no evidence of injury Neurologic/Tendon: normal sensation, normal motor functions, responds to pain Neurologic/Psychiatric: alert, oriented x 3 Skin: normal color, warm/dry, other (Left knee laceration) Lymphatic: no adenopathy (Head and Neck) (EILEEN GREER [employer] STUDENT) Procedures/Interventions Wound Location: Lower Extremities Other Wound Location left knee Wound Length (cm): 4.5 Wound's Depth, Shape: into muscle, linear Wound Explored: clean Irrigated w/ Saline (ccs): 150 Betadine Prep?: Yes Anesthesia: 1% Lidocaine Volume Anesthetic (ccs): 1 Suture: Ethlion Suture Size: 4-0 Number of Sutures: 5 Layer Closure?: 1 Sterile Dressing Applied?: Yes (EDINSON GRAVES MD) Progress/Results/Core Measures Results/Orders My Orders Orders - EDINSON GRAVES MD Dipht,Pertuss(Acell),Tet Adult (Boostrix (06/24/21 06:30) (EDINSON GRAVES MD) Medications Given in ED Current Medications Medications Dose Ordered Sig/Shelli Route Start Time Stop Time Status Last Admin Dose Admin Diphtheria/ Tetanus/Acell Pertussis 0.5 ml ONCE ONCE IM 06/24/21 06:30 06/24/21 06:31 DC 06/24/21 06:38 0.5 ML (EDINSON GRAVES MD) Vital Signs/I&O 06/24/21 06/24/21 06:20 07:19 Temp 36.8 36.8 Pulse 85 85 Resp 22 22 B/P (MAP) 133/119 (124) 133/119 Pulse Ox 95 O2 Delivery Room Air Room Air (EDINSON GRAVES MD) Progress Progress Note : Time: 07:15 Progress Note 40yo male to ER per EMS after allegedly tripping and falling outside onto a hatchet. Patient obviously intoxicated. last tetanus >5y ago. No complaints of distal numbness, weakness. Laceration over the upper lateral aspect of the knee cap. No active bleeding. Laceration extends through subcutaneous tissues. No obvious bony involvement. Good ROM at the knee. Physical exam remarkable for 4.5cm linear laceration over the knee cap on the left knee. GOod ROM. NVI. no foreign body identified after wound copiously irrigated and explored. 4-0 ethilon x5 sutures used to close the wound. Lidocaine 1% 1.5cc used to anesthetize the wound. Dressed with triple ant ibiotic ointment and a dry gauze dressing. wrapped. Return precautions given. Suture removal 10-14d. Tetanus updated. (EDINSON GRAVES MD) Departure Impression Primary Impression: Laceration of left knee Qualified Codes: S81.012A - Laceration without foreign body, left knee, initial encounter Disposition: 01 HOME, SELF-CARE Condition: Stable Departure-Patient Inst. Decision time for Depature: 07:12 (EDINSON GRAVES MD) Referrals: [facility] (PCP/Family) Primary Care Physician Patient Instructions: Laceration Repair With Stitches ED Add. Discharge Instructions: Keep the laceration clean, dry and covered for 3-4 days. You can put a little triple antibiotic ointment on it twice a day with a dry bandage for 2-3 days. The stitches will need to come out in 10-14 days. Come back here for that, it is part of this visit. Come back to the ER sooner if the wound gets red, swollen, drains pus or any other emergent, concerning symptoms. Ibuprofen as needed for pain. Verification and Attestation of Medical Student E/M Service A medical student performed and documented this service in my presence. I reviewed and verified all information documented by the medical student and made modifications to such information, when appropriate. I personally performed the physical exam and medical decision making. Edinson Graves, Jun 24, 2021,07:14 (EDINSON GRAVES MD) Copy Copies To 1: GERDA KERN LUKE MED STUDENT Jun 24, 2021 06:39 EDINSON GRAVES MD Jun 24, 2021 07:14
[2021-06-24 07:19] VITALS: BP 133/119
== END 2021-06-24 07:19 | disposition home or self-care (01) ==
LOC: EDUNIT# 06:20 → ER 06:22
DX: S81.012A Laceration without foreign body, left knee, initial encounter (principal); F17.210 Nicotine dependence, cigarettes, uncomplicated; Z23 Encounter for immunization; W01.0XXA Fall on same level from slipping, tripping and stumbling without subsequent striking against object, initial encounter
CPT/HCPCS: 12001; 12011; 90715